=== PATIENT | female | born 1945 | race Caucasian/White ===

== ENCOUNTER 2016-05-02 07:36 | Day surgery (SDC) | payer OTHER, MEDICARE ==
[2016-05-02 08:20] VITALS: BMI 29.6
[2016-05-02] MEDS ORDERED: PROPOFOL 20 ML ONE ×3 (08:36)
[2016-05-02] MEDS ORDERED: LIDOCAINE HCL/PF 1% SDV 5ML VIAL ONE (08:36)
[2016-05-02 09:29] VITALS: TEMP 97.5
[2016-05-02 09:55] VITALS: BP 134/85
[2016-05-02 10:17] VITALS: PULSE 66
--- NOTE | 2016-05-03 13:40 | PATH ---
Surgical Pathology Report Patient Name: SAMEER FRANCIS [facility]. Rec. #: [id number] /Age/Gender: 1945 (Age: 71) / F Account: [id number] Location: U-ENDOSCOPY Taken: 05/02/2016 Received: 05/02/2016 Reported: 05/03/2016 Physicians: Callum Chinchilla M.D. Specimen(s) Received A: BX POLYP PROXIMAL TRANSVERSE COLON B: BX POLYPS SIGMOID Clinical History History of sessile polyp and adenoma Colon polyp, melanosis coli, diverticulosis Final Diagnosis A., PROXIMAL TRANSVERSE, POLYP, BIOPSY: TUBULAR ADENOMA. ADDITIONAL FRAGMENTS OF COLONIC MUCOSA WITH HYPERPLASTIC CHANGE AND MELANOSIS COLI. B. COLON, SIGMOID, POLYPS, BIOPSY: HYPERPLASTIC POLYPS. Electronically Signed Yehuda Barrera M.D. Gross Description A. Received in formalin, labeled "biopsy polyp proximal transverse" are 6 garcia, irregular portions of soft tissue ranging from 0.1-0.5 cm in greatest dimension. The specimens are submitted in toto in one cassette. B. Received in formalin, labeled "biopsy polyp sigmoid" are 3 garcia, irregular portions of soft tissue ranging from 0.1-0.4 cm in greatest dimension. The specimens are submitted in toto in one cassette. 05/02/201605/02/2016
== END 2016-05-02 10:17 | disposition home or self-care (01) ==
LOC: JASU-ENDO 07:36
PROVIDERS: ATTEND Internal Medicine Gastroenterology
PROC: 0DBL8ZX Excision of Transverse Colon, Via Natural or Artificial Opening Endoscopic, Diagnostic (ICD-10-PCS; 2016-05-02)
PROC: 0DBN8ZX Excision of Sigmoid Colon, Via Natural or Artificial Opening Endoscopic, Diagnostic (ICD-10-PCS; principal; 2016-05-02 09:00)
DX: Z86.010 Personal history of colon polyps (principal); D12.5 Benign neoplasm of sigmoid colon; D12.3 Benign neoplasm of transverse colon; K57.30 Diverticulosis of large intestine without perforation or abscess without bleeding; K64.8 Other hemorrhoids
CPT/HCPCS: 88305-TC

== ENCOUNTER 2016-06-13 10:55 | Emergency (ER) | payer OTHER, MEDICARE ==
[2016-06-13 11:08] VITALS: BMI 28.5
--- NOTE | 2016-06-13 12:45 | PDOC ---
History of Present Illness <Tu Almodovar - Last Filed: 06/13/16 14:43> - General History Source: Patient, Old Records Exam Limitations: No Limitations - History of Present Illness Initial Comments: 06/13/16 13:02 The patient is a 71-year-old woman with a significant past medical history of hypertension, transient ischemic attack, SVTs s/p EPS, non-insulin dependent diabetes mellitus, colonoscopic polypectomies, colon adenomas, diverticulosis and seizures with NPH s/p shunt insertion(2004), herniated discs, spinal stenosis, who presents to the emergency department for further evaluation of lower back pain. No fall, trauma and/or strenous activity that might have exacerbated this pain. She states that she has been experiencing intermittent sharp-like bilateral lower back pains since her surgery. However, she states that for the past week, her pains have been more constant than usual. She wanted to take Percocet for pain, as this typically helps alleviated her pains, but were . Her pains are exacerbated with minimal movements and when lying down with a rated 8/10 in severity. Her pain radiates down to her left lateral thigh and stops at the left knee, which is alleviated when ambulating and sitting. No weakness, tingling, numbness sensations to her extremities. Patient spoke to her Neurosurgeon, Dr. Kalyan Perez who advised her to present to the ED. She denies SOB, WARREN, fever, chills, cough, N/V/D, bowel or bladder incontinence/ retention. She denies saddle anesthesia, paresthesias, focal weakness, sensory deficit, gait dysfunction, hematuria or dysuria. Past Surgical History: TAHBSO for fibroids. Hemorrhoidectomy. Breast reduction. Tonsillectomy. Bilateral iridectomies. Nasal basal cell carcinoma excision. Spinal stenosis surgery (July 2014). Social History: Former smoker (Quit 1980). ETOH use. No recreational drug use. Family Past Medical History: Father (Ischemic Heart Disease- at 55). Mother (Alzheimers disease and Cerebrovascular Accident- Alive. Brother ( Malignant tumor of the colon- at age 55) Primary Care Physician: Dr. Lorelei Oropeza [phone]/ [phone] Neurosurgeon: Dr. Kalyan Perez [phone] <Kerry Joseph - Last Filed: 06/13/16 14:48> - General Chief Complaint: Chronic pain Stated Complaint: PAIN/ BACK, LEG Time Seen by Provider: 06/13/16 12:40 Past History - Past Medical History Anemia: No Asthma: No Cancer: Yes (NASAL BASAL CELL CARCINOMA) Cardiac Disorders: Yes (SVT-HAD EPC) CVA: Yes (TIA) COPD: No Diabetes: Yes (NIDDM) GI Disorders: Yes (POLYPS; DIVERTICULOASIS) Disorders: No HTN: Yes Liver Disease: No Seizures: Yes (WITH NPH) Thyroid Disease: No - Surgical History Abdominal Surgery: No Appendectomy: No Cardiac Surgery: No Cholecystectomy: No Lung Surgery: No Neurologic Surgery: Yes (HYDROCEPHALUS,SHUNT INSERTION 2004) - Psycho/Social/Smoking Cessation Hx Suicidal Ideation: No Smoking History: Former smoker Have you smoked in the past 12 months: No If you are a former smoker, when did you quit?: 40YRS AGO Information on smoking cessation initiated: No Hx Alcohol Use: Yes ("SOCIALLY") Drug/Substance Use Hx: No Substance Use Type: None Hx Substance Use Treatment: No <Tu Almodovar - Last Filed: 06/13/16 14:43> <Kerry Joseph - Last Filed: 06/13/16 14:48> - Past Medical History Allergies/Adverse Reactions: Allergies Allergy/AdvReac Type Severity Reaction Status Date / Time No Known Drug Allergies Allergy Verified 06/13/16 11:09 Home Medications: Ambulatory Orders Amlodipine Besylate/Benazepril [Lotrel 5-20 mg Capsule] 1 each PO BID 04/08/14 Lamotrigine 100 mg PO DAILY 04/08/14 Metformin HCl [Glucophage] 1,000 mg PO BID 04/08/14 Metoprolol Succinate [Toprol XL -] 300 mg PO DAILY 04/08/14 Polyethylene Glycol 3350 [Miralax 119 gm Btl -] 17 gm PO DAILY 04/08/14 Aspirin [ASA -] 81 mg PO DAILY #0 04/09/14 Cyanocobalamin [Vitamin B12 -] 1,000 mcg PO DAILY 08/06/14 Hydrochlorothiazide [Hctz -] 25 mg PO DAILY 08/16/14 Oxycodone HCl/Acetaminophen [Percocet 5-325 mg Tablet] 1 - 2 tab PO Q6H PRN #30 tab MDD 8 06/13/16 Review of Systems - Review of Systems Constitutional: No: Chills, Fever : No: Incontinence Musculoskeletal: Yes: Back Pain Neurological: No: Tingling, Weakness <Tu Almodovar - Last Filed: 06/13/16 14:43> *Physical Exam - Vital Signs Last Vital Signs Temp Pulse Resp BP Pulse Ox 97.8 F 59 L 16 141/68 95 06/13/16 11:06 06/13/16 11:06 06/13/16 11:06 06/13/16 11:06 06/13/16 11:06 <Tu Almodovar - Last Filed: 06/13/16 14:43> - Vital Signs Last Vital Signs Temp Pulse Resp BP Pulse Ox 97.8 F 59 L 16 141/68 95 06/13/16 11:06 06/13/16 11:06 06/13/16 11:06 06/13/16 11:06 06/13/16 11:06 - Physical Exam Comments: 06/13/16 13:02 GENERAL: The patient is awake, alert, and fully oriented, in no acute distress. HEAD: Normal with no signs of trauma. EYES: Pupils equal, round and reactive to light, extraocular movements intact, sclera anicteric, conjunctiva clear with no pallor. ENT: Ears normal, nares patent, oropharynx clear without exudates. Moist mucous membranes. NECK: Normal range of motion, supple without lymphadenopathy, JVD, or masses. LUNGS: Breath sounds equal, clear to auscultation bilaterally. No wheeze/ crackles. HEART: Regular rate and rhythm, normal S1 and S2 without murmur or rub. ABDOMEN: Soft/nontender/nondistended. BS wnl. No guarding or rebound. No palpable masses. No hepatosplenomegaly. EXTREMITIES: Normal range of motion, no edema. No clubbing or cyanosis. No cords, erythema, or tenderness. BACK: There is a well healed midline spinal scar. No midline spine tenderness. There is bilateral lumbar parapsinal discomfort to palpation but no noted ecchymosis or swelling. NEUROLOGICAL: Cranial nerves II through XII grossly intact. Normal speech, normal gait. There is 5/5 strength with flexion and extension to the bilateral legs, hips knees toes. Negative straight leg raise, bilaterally. PSYCH: Normal mood, normal affect. SKIN: Warm, Dry, normal turgor, no rashes or lesions noted. <Kerry Joseph - Last Filed: 06/13/16 14:48> ED Treatment Course - RADIOLOGY Radiograph Interpretation: 06/13/16 14:48 EXAM: CT/LUMBAR SPINE CT W/O CONTRAST IMPRESSION: History of L3 fusion low back pain. Evaluate for herniated disc. Evaluate for herniated disc. CT scan of lumbosacral spine noncontrast. Direct axial images were obtained from T11 through the upper sacrum. The study was supplemented with computer generated sagittal and coronal reconstruction images. The meat boner images were reviewed. Findings. Normal alignment of vertebral elements is noted. Normal lumbar lordosis. T11-T12. Loss of disc space height. Anterior, bilateral lateral spondylosis. Facet joint arthropathy with partially calcified ligamentum flavum. T12-L1. Normal disc space height. Mild facet joint arthropathy. No disc herniation seen. L1-L2. Loss of disc space height. Facet joint arthropathy. Anterior, left lateral spondylosis. Right paracentral calcification of the posterior annulus. L2-L3. Loss of disc space height. Moderate degenerative facet joint arthropathy with thickened ligamentum flavum, right ligamentum flavum calcification anterior to the right facet joint. Circumferential disc bulge. Central spinal canal stenosis. Hypertrophic superior articular process of L3 encroaching on the neural foramina. L3-L4. Status post laminectomy. Disc prostheses. Facet joint arthropathy. Interpeduncular screws are noted in L3, L4 vertebral bodies with vertically oriented stabilizing bars. No evidence of neural foramina stenosis. The intraspinal contents cannot be adequately evaluated due to the beam hardening artifacts. L4-L5. Loss of disc space height. Moderate facet joint arthropathy. The intraspinal contents cannot be adequately due to the beam hardening artifacts. Hypertrophic superior articular process of L5 encroaching of the neural foramina, right greater than the left. L5-S1. Loss of disc space height. Degenerative endplate sclerosis. Vacuum phenomena. Moderate degenerative facet joint arthropathy, enlarged facet joints encroaching of the neural foramina. Calcified ligamentum flavum along the anterior surface of the superior articular process of S1 ( right > left). Para discal osteophyte arising from the inferior endplate of L5 encroaching of the left neural foramen. Bilateral neural foramina stenosis. The spinal contents cannot be adequately evaluated due to the beam hardening artifacts. Normal height the vertebral bodies. No evidence of compression deformities, spondylolisthesis. No evidence of lytic or blastic lesions. Symmetrical psoas muscles. No renal stone or hydronephrosis is seen in the visualized kidneys. Large right renal cyst. Distended urinary bladder - Medications Given in the ED: ED Medications Discontinued Medications Generic Name Dose Route Start Last Admin Trade Name Freq PRN Reason Stop Dose Admin Oxycodone/Acetaminophen 1 combo 06/13/16 12:54 06/13/16 12:59 Percocet 5/325 - PO 06/13/16 12:55 1 combo ONCE ONE Administration <Kerry Joseph - Last Filed: 06/13/16 14:48> Medical Decision Making - Medical Decision Making 06/13/16 13:24 A portion of this note was documented by scribe services under my direction. I have reviewed the details of the note, within reason, and agree with the documentation with the following case summary and management plan written by me. 71-year-old female with history of L3 spinal fusion presents with one month of bilateral atraumatic low back pain and now 3 days of sharp radiating left low back/leg pain. Pain radiates laterally and anteriorly to the knee, no associated motor or sensory deficit, no bowel or bladder issues. No trauma. Patient states she was instructed by Dr. Perez's office to come to the ER. Exam as noted, neurologically intact. 71-year-old female with lumbar radiculopathy, question disc versus stenosis. Low suspicion for trauma. No other red flags. Neuro intact. Pain control - took percocet in the past D/W Dr. Perez, recommends CT lumbar spine for further evaluation Dispo accordingly 06/13/16 14:43 Feels better after Percocet, remains neurologically intact. Still some residual discomfort and she tolerated the first dose well, so requests a second dose which was ordered. Ambulating steadily. CT shows both disc and neural foraminal stenosis lesions L2-L3, which is likely the cause of the patient's symptoms. Given neurologically intact and pain controlled, can follow-up with Dr. Perez as outpatient. at bedside, they agree with plan. <Tu Almodovar - Last Filed: 06/13/16 14:43> - Medical Decision Making 06/13/16 13:14 Page sent to Neurosurgeon, Dr. Kalyan Perez. Immediate response. Case was discussed. <JosephKerry - Last Filed: 06/13/16 14:48> *DC/Admit/Observation/Transfer <Tu Almodovar - Last Filed: 06/13/16 14:43> - Attestations Scribe Attestion: 06/13/16 13:03 Documentation prepared by Kerry Joseph, acting as emergency medical technician for Tu Almodovar MD. <OpalKeryr - Last Filed: 06/13/16 14:48> Diagnosis at time of Disposition: Lumbar radiculopathy - Discharge Dispostion Disposition: HOME Condition at time of disposition: Fair - Prescriptions Prescriptions: Oxycodone HCl/Acetaminophen [Percocet 5-325 mg Tablet] 1 - 2 tab PO Q6H PRN #30 tab MDD 8 PRN Reason: Severe Pain - Referrals Referrals: Lorelei Oropeza MD [Primary Care Provider] - Kalyan Perez MD [Staff Physician] - - Patient Instructions Printed Discharge Instructions: DI for Lumbar Radiculopathy Additional Instructions: Activity as tolerated: avoid bedrest and strenuous activity. Stay hydrated. Continue ibuprofen 600 mg every 8 hours (with meals) as needed for moderate pain. Percocet as prescribed as needed for severe pain. Percocet can make you lightheaded, so take proper precautions. Continue your medications as previously prescribed by your physician. You should follow up with Dr. Perez as soon as possible regarding today's emergency department visit. Bring the CT results with you to the visit. Return to the emergency department for any new or concerning symptoms, particularly persistent or intolerable pain, leg numbness or weakness, bowel or bladder issues.
[2016-06-13] MEDS ORDERED: OXYCODONE/APAP 5/325MG COMBO TABLET PO ONE ×2 (12:54→14:43)
[2016-06-13] MEDS ORDERED: OXYCODONE/APAP 5/325MG COMBO TABLET ONE ×2 (12:59→14:45)
[2016-06-13 14:57] VITALS: BP 119/64; PULSE 53; TEMP 98.6
== END 2016-06-13 15:37 | disposition home or self-care (01) ==
LOC: JER 10:55 → JERFT 10:55 → JER 15:37
DX: M54.16 Radiculopathy, lumbar region (principal); I10 Essential (primary) hypertension; Z86.73 Personal history of transient ischemic attack (TIA), and cerebral infarction without residual deficits; I47.1 Supraventricular tachycardia; E11.9 Type 2 diabetes mellitus without complications; Z95.9 Presence of cardiac and vascular implant and graft, unspecified; Z85.828 Personal history of other malignant neoplasm of skin; Z87.891 Personal history of nicotine dependence
CPT/HCPCS: 72131-TC; 99283-25

== ENCOUNTER 2016-07-04 05:07 | Day surgery (SDC) | payer OTHER, MEDICARE ==
[2016-06-28 10:00] VITALS: BMI 27.8
[2016-07-04 08:53] VITALS: TEMP 97.7
[2016-07-04] MEDS ORDERED: MIDAZOLAM HCL 2 MG/2 ML SINGLE DOSE VIAL ONE (09:58)
[2016-07-04] MEDS ORDERED: BUPIVACAINE HCL/PF 0.25% (2.5MG/ML) 10 ML VIAL ONE (10:05)
[2016-07-04] MEDS ORDERED: methylPREDNISolone ACET (DEPO) 80 MG/1 ML VIAL ONE (10:05)
[2016-07-04] MEDS ORDERED: PROPOFOL 20 ML ONE (10:33)
[2016-07-04] MEDS ORDERED: BUPIVACAINE HCL/PF 0.25% (2.5MG/ML) 10 ML VIAL IJ ONE (10:36)
[2016-07-04] MEDS ORDERED: methylPREDNISolone ACET (DEPO) 80 MG/1 ML VIAL IJ ONE (10:36)
[2016-07-04] MEDS ORDERED: LIDOCAINE HCL 1% PRESERVATIVE FREE - 30ML VIAL IJ ONE (10:36)
[2016-07-04 13:34] VITALS: BP 128/70; PULSE 74
--- NOTE | 2016-07-05 15:59 | OP ---
DATE OF OPERATION: 07/04/2016 PREOPERATIVE DIAGNOSES: 1. History of L3-L4 fusion. 2. Left L2-L3 herniated disk with back pain and lumbar radiculopathy. POSTOPERATIVE DIAGNOSES: 1. History of L3-L4 fusion. 2. Left L2-L3 herniated disk with back pain and lumbar radiculopathy. ATTENDING SURGEON: Kaylan Gonzalez MD PROCEDURES: 1. Left L1-L2 epidural steroid injection. 2. Intraoperative fluoroscopy. ANESTHESIA: Local with IV sedation by Dr. Gao. INDICATIONS: The patient is a 71-year-old female with back pain and lumbar radiculopathy. She had developed a new disk herniation at L2-L3. Because of intractable symptoms and failure of conservative therapy, she has consented for a left L1-L2 epidural steroid injection. The location was chosen to minimize scar tissue around the site of the injection. The risks of procedure include, but are not limited to, bleeding, infection, spinal headache, and neurologic injury. The patient understands the indications for the procedure, the procedure in detail, the risks and benefits and alternatives for treatment of her lumbar condition and wishes to proceed. No guarantees were given for a favorable outcome. PROCEDURE IN DETAIL: After the patient was taken to the operating room, she was placed in the prone position with a pillow under her hips. The lumbar area was cleaned with alcohol and painted with Betadine. A skin wheal was raised with 5cc 1% Xylocaine. A 22-gauge spinal needle was inserted under AP and fluoroscopic guidance from the left-sided approach at L1-L2. [id number] technique was utilized, and there was no CSF or blood backflow. Then, 80 mg of Depo-Medrol and 1 mL of 0.25% Marcaine were injected. The needle was withdrawn and a sterile bandage was applied. The patient tolerated the procedure well and was turned back into the supine position. She was moving the bilateral lower extremities well. She did not complain of headache. KALYAN GONZALEZ M.D. [id number] MTDD
== END 2016-07-04 12:30 | disposition home or self-care (01) ==
LOC: JASU-SURG 05:07
PROVIDERS: ATTEND Neurological Surgery
PROC: 3E0S33Z Introduction of Anti-inflammatory into Epidural Space, Percutaneous Approach (ICD-10-PCS; 2016-07-04)
PROC: B01BZZZ Fluoroscopy of Spinal Cord (ICD-10-PCS; 2016-07-04)
PROC: 3E0S3BZ Introduction of Anesthetic Agent into Epidural Space, Percutaneous Approach (ICD-10-PCS; principal; 2016-07-04 10:00)
DX: M51.16 Intervertebral disc disorders with radiculopathy, lumbar region (principal); M54.89 Other dorsalgia; Z98.1 Arthrodesis status
CPT/HCPCS: 76000-TC

== ENCOUNTER 2016-08-29 05:13 | Inpatient (IN) | payer OTHER, MEDICARE ==
[2016-08-28 09:15] VITALS: BMI 28.1
[~2016-08-29 05:13] MED LIST: BACITRACIN 30 GM TUBE TOPICAL OINTMENT TP ONE
[2016-08-29] MEDS ORDERED: BUPIVACAINE HCL/PF 0.5% (5MG/ML) 10 ML VIAL ONE (07:09)
[2016-08-29] MEDS ORDERED: BACITRACIN 30 GM TUBE TOPICAL OINTMENT ONE (07:09)
[2016-08-29] MEDS ORDERED: MIDAZOLAM HCL 2 MG/2 ML SINGLE DOSE VIAL ONE (08:11)
[2016-08-29] MEDS ORDERED: CEFAZOLIN 2 GM in DEXTROSE 5%-WATER - 100 ML IVPB ONE (08:15)
[2016-08-29] MEDS ORDERED: THROMBIN (BOVINE) 5,000 UNIT VIAL TP ONE (08:17)
[2016-08-29] MEDS ORDERED: BACITRACIN 50,000 UNITS VIAL TP ONE (08:17)
[2016-08-29] MEDS ORDERED: PROPOFOL 20 ML ONE ×13 (08:25→10:48)
[2016-08-29] MEDS ORDERED: ROCURONIUM BROMIDE 50 MG/5 ML VIAL ONE (08:25)
[2016-08-29] MEDS ORDERED: ceFAZolin SODIUM 1 GM VIAL IVPB ONE (08:30)
--- NOTE | 2016-08-29 12:58 | OP ---
Operative Note - Note: Operative Date: 08/29/16 Pre-Operative Diagnosis: L2-3 HNP and instability; radiculopathy; prior L3-4 fusion Operation: Redo and expansion of bilateral laminectomies L2, L3, L4; L2-3 discectomy, lysis of adhesion, removal of L3-4 implants, interbody and postero- lateral fusion L2-3; posterolateral fusion L3-4; L2-4 instrumentation; fluoroscopy Findings: dense epidural and paraspinal fibrosis; L2-3 HNP; hypermobility L2-3; sensitive roots bilaterally L2, L3, L4 Implants: Reframed.tv Rosalina 4.5 (6.5 x 45mm screws at L2 and new 60 mm rods B and locking screws); B 11mm interbody fusion Post-Operative Diagnosis: Same as Pre-op Surgeon: Kalyan Perez Hand Twister: Lyndsey Guzman Anesthesiologist/CUSTODIAL MANAGER: Marlene Dumont MD Anesthesia: General Specimens Removed: L2-3 disc; L3-4 metallic implants Estimated Blood Loss (mls): 300
[2016-08-29] MEDS ORDERED: BACITRACIN 30 GM TUBE TOPICAL OINTMENT TP ONE (13:03)
[2016-08-29] MEDS ORDERED: BISACODYL 10 MG SUPP.RECT RC PRN (13:21)
--- NOTE | 2016-08-29 13:37 | PN ---
Progress Note (short form) - Note Progress Note: NEUROSURGERY Pt in PACU AF, VSS; O2 sat 99% PE: Dressing C/D/I Motor at least 4- B LE and US Labs pending LS spine x-rays in AM Family informed of intra-op findings
[2016-08-29] MEDS ORDERED: HYDROmorphone *PCA* 10MG/50ML DISP.SYRIN PCA ONE (13:43)
[2016-08-29] MEDS: HYDROmorphone *PCA* 10MG/50ML DISP.SYRIN PCA SCH (13:50)
[2016-08-29] MEDS ORDERED: DEXAMETHASONE SOD PHOSPHATE 4 MG/1 ML VIAL IVPUSH PRN (14:03)
[2016-08-29] MEDS ORDERED: PROMETHAZINE HCL 25 MG/1 ML VIAL IVPB PRN (14:03)
[2016-08-29 14:07] LABS: MCH 28.9 pg (25.7-33.7); MCHC 33.3 g/dl (32.0-36.0); MEAN CELL VOLUME 86.9 fl (80-96); PLATELET COUNT 147 K/MM3 (134-434); RDW 14.9 % (11.6-15.6); WHITE BLOOD COUNT 6.3 K/mm3 (4.0-10.0)
[2016-08-29 14:40] LABS: CALCIUM 8.9 mg/dL (8.5-10.1); COCKROFT - GAULT 107.627; CREATININE 0.6 mg/dL (0.55-1.02)
[2016-08-29] MEDS: D5-1/2NS+20 MEQ KCL - 1,000 ML IV SCH (15:30)
[2016-08-29] MEDS: DOCUSATE SODIUM 100 MG CAPSULE (FP) PO SCH ×2 (17:04→21:40)
[2016-08-29] MEDS: diazePAM 5 MG TABLET PO SCH ×2 (17:04→21:40)
[2016-08-29] MEDS: CEFAZOLIN (PRE-DOCKED) 50 ML IVPB SCH (18:05)
[2016-08-29] MEDS: metFORMIN HCL 500 MG TABLET (FP) PO SCH (18:05)
[2016-08-29] MEDS: amLODIPine BESYLATE 5 MG TABLET (FP) PO SCH (21:40)
[2016-08-29] MEDS: LISINOPRIL 20 MG TABLET (FP) PO SCH (21:40)
[2016-08-30] MEDS ORDERED: HYDROmorphone *PCA* 10MG/50ML DISP.SYRIN PCA ONE ×2 (00:05→11:00)
[2016-08-30] MEDS: HYDROmorphone *PCA* 10MG/50ML DISP.SYRIN PCA SCH ×2 (00:30→15:37)
[2016-08-30] MEDS: CEFAZOLIN (PRE-DOCKED) 50 ML IVPB SCH ×2 (01:41→11:17)
[2016-08-30] MEDS: metFORMIN HCL 500 MG TABLET (FP) PO SCH ×2 (06:22→17:35)
[2016-08-30] MEDS: DOCUSATE SODIUM 100 MG CAPSULE (FP) PO SCH ×3 (06:22→21:19)
[2016-08-30] MEDS: diazePAM 5 MG TABLET PO SCH ×3 (06:22→21:20)
--- NOTE | 2016-08-30 08:58 | PN ---
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
--- NOTE | 2016-08-30 09:01 | OP ---
DATE OF OPERATION: 08/29/2016 PREOPERATIVE DIAGNOSES: 1. 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 2. History of L3-4 fusion. 3. Spinal stenosis. 4. Hypertension. 5. Diabetes. POSTOPERATIVE DIAGNOSES: 1. 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 2. History of L3-4 fusion. 3. Spinal stenosis. 4. Hypertension. 5. Diabetes. ATTENDING SURGEON: Kalyan Perez MD DIRECTOR MUSIC: NICO Sofia ANESTHESIA: General endotracheal. ANESTHESIOLOGIST: Marlene Dumont MD ESTIMATED BLOOD LOSS: 300 mL PROCEDURE: 1. Redo and expansion of prior laminectomies at L3 and L4 and new bilateral laminectomy at L2, including medial facetectomy and foraminotomy to decompress the thecal sac as well as bilateral L4, L3, and L2 nerve roots (81029-68-09, 69348- 50, and 05637-88). 2. Lacona of autologous spinous process, laminar, and facet bone for interbody and posterolateral fusion (47274). 3. Bilateral L2-3 diskectomy. 4. L2-3 interbody and posterolateral fusion (35771). 5. Placement of bilateral interbody implants at L2-3 (58091). 6. Removal of prior posterior lumbar fixation system at L3-4 to facilitate new implant placement (41807). 7. Posterior lumbar pedicle screw fixation system placement with new pedicle screws at L2 bilaterally and new rods and locking screw systems from L2 to L4 (90147-25 ). 8. Bilateral L3-4 posterolateral fusion with autologous morcellized bone graft and bone dust (21315-96). 9. Intraoperative fluoroscopy for localization and pedicle screw placement (20830-35). FINDINGS: 1. Extremely bilateral sensitive nerve roots. 2. Slightly delayed SSEP signal latency at baseline. 3. Disk herniation at L2-3 with associated hypermobility. 4. Dense epidural and paraspinal fibrosis. INDICATIONS: The patient is a 71-year-old female who has previously undergone lumbar decompression and fusion with instrumentation about a year earlier. She did well after surgery, however, started experiencing recurrence of radicular pain down the left lower extremity several weeks ago. She has also recently developed right- sided radiculopathy. Because of intractable symptoms and failure of conservative treatment, she was consented for lumbar decompression and extension of the fusion up to the L2 level from L3-4. Decompression will also be performed from L2 to L4 with interbody fusion and posterolateral fusion at L2-3. Implant system will need to be changed and added on. The risks of the procedure include, but are not limited to, bleeding, infection, dural tear with CSF leak, neurological injury, increased thromboembolic risks, nonunion of fusion, and other risks of general anesthesia. The patient understands the indication for the procedure, procedure in detail, risks and benefits, and alternative for treatment of her lumbar condition, including decompression alone, and wishes to proceed with the fusion procedure at this time. No guarantees given for a favorable outcome. The patient understands that her risks are higher than usual because of the redo nature of her surgery, as well as her medical condition including diabetes. Intraoperative SSEP and EMG signals were monitored. PROCEDURE IN DETAIL: The patient was taken to the operating room. She was placed in the supine position. After general anesthesia was induced and appropriate monitors were placed, a Del Toro catheter was inserted. The patient was then turned into the prone position on a Lawrence frame. All pressure points were checked and padded. Baseline SSEP signals were obtained. O2 saturations on bilateral extremities were found to be 100%. At this point, the localizing x-ray was obtained with spinal needle in place. The patient was sterilely prepped and draped. The prior incision was used with approximately 1 inch cephalad extension to access the L2-3 level adequately. Subperiosteal dissection was carried out with periosteal elevator and monopolar electrocautery. Dense paraspinal and epidural fibrosis was noted. At this point, the prior instrumentation system at L3-4 was skeletonized. Two self-retaining retractors were inserted. The spinous process at L2 was resected with a Leksell rongeur and complete laminectomy was carried out with a combination of high-speed pneumatic drill, angled curet, and Kerrison rongeur. Meticulous dissection was needed because of the dense epidural and paraspinal fibrosis. Medial facetectomy was carried out at the L2-3 level in order to gain access to the lateral recess. There was significant compression of the spinal canal on the right side because of the bone facet overgrowth as well as the paraspinal fibrosis. The epidural hemostasis was obtained with bipolar electrocautery and thrombin-soaked powdered Gelfoam. The underlying ligamentum flavum was dissected free and resected with Kerrison rongeur. This segment was hypermobile even before the laminectomy was carried out. At this point, under gentle left L3 nerve root retraction, disk annulus was incised with a No. 15 blade. Some disk fragment and additional disk material were removed from the epidural space as well as from the disk space. The serially larger disk space scraper was used at L2-3 on the left up to 9 mm. The attention then turned to the right-sided disk space, where under gentle right L3 nerve root retraction the disk annulus was incised with a No. 15 blade and disk space was cleaned with serially larger disk space scraper up to 11 mm. A 12-mm distractor was used on the right side and attention turned to the left-sided interspace, where the central portion of disk material was removed with downgoing curet and upgoing pituitary rongeur. Some side-angling curet was also used after disk space scraper up to 11 mm was used to further prepare the disk space and to decompress the spinal canal. An 11-mm corticocancellous interbody implant was placed and countersunk by about 5 mm. Attention turned to the right-sided disk space, where the distractor was removed, and the disk space was similarly prepared. The central portion of the disk space was packed with autologous morcellized bone graft and bone dust which was harvested earlier during the exposure. Another 11-mm interbody implant was inserted and countersunk by 4 to 5 mm as well. At this point, the fluoroscope was brought in the lateral AP position to ascertain AP position of the patient's lumbar spine. It was then turned to the lateral position and sterilely draped also. The entry point of the pedicle screw at L2 was marked with a high-speed pneumatic drill and screw holes were made with a hand-held awl with approximately 6 to 8 degrees medial angle. The screw holes were then tapped, then 6.5 x 45-mm screws were used at L2 bilaterally. This was done with realtime EMG monitoring. After the facetectomy was carried out at L2-3, the L3 screws were moved anteriorly to facilitate the lordosis of the iraida. This was done bilaterally at L3. The EMG threshold of bilateral L2 and L3 pedicle screws was greater than 20 mA. A 60-mm prebent iraida was loaded on top of the screw heads and locked down with locking screws. The screws were compressed prior to final tightening. The torque wrench and counter-torque wrench were used for final tightening. The entire constructs on the right side and left side were stimulated once again, and there were no aberrant EMG activities. The wound was then irrigated with a copious amount of antibiotic irrigation at this time. A Valsalva maneuver was performed and there was no CSF leak at any point. In all, bilateral L2, L3, and L5 nerve roots were decompressed as well as the thecal sac centrally. The posterolateral bone graft was significantly removed during the removal of the prior implant at L3 and L4, including locking screws and rods. Therefore, additional bone graft was needed to be placed at L3-4 level in addition to the L2-3 level to fortify the prior fusion at L3-4. After hemostasis was obtained with bipolar electrocautery, a layer of Surgicel was layered in the epidural space. Dorsal lumbar musculature was approximated with 0 Vicryl suture and the dorsal lumbar fascia was closed with 0 Vicryl interrupted sutures. Subcutaneous fascia was closed with 3-0 Vicryl sutures and skin was closed with 4-0 Vicryl running subcuticular suture. Steri-Strips and a sterile occlusive dressing were applied. The patient tolerated the procedure well and was turned back to the supine position and extubated. She was moving bilateral upper and lower extremities as she did preoperatively. A small skin abrasion was noted in the right groin area. Bacitracin ointment was applied. The patient received 1 dose of 1 g of Ancef prior to the incision. All needle and lap counts were correct. The OR timeout procedure was followed. Lisbet [id number] MTDD
[2016-08-30] MEDS: METOPROLOL SUCCINATE 100 MG TAB.SR.24H (FP) PO SCH (11:16)
[2016-08-30] MEDS: HYDROCHLOROTHIAZIDE 25 MG TABLET (FP) PO SCH (11:16)
[2016-08-30] MEDS: LISINOPRIL 20 MG TABLET (FP) PO SCH ×2 (11:16→21:19)
[2016-08-30] MEDS: amLODIPine BESYLATE 5 MG TABLET (FP) PO SCH ×2 (11:16→21:19)
[2016-08-30] MEDS: POLYETHYLENE GLYCOL 3350 119 GM BTL PO SCH (11:17)
[2016-08-30] MEDS: lamoTRIgine 100 MG TABLET (FP) PO SCH (11:17)
--- NOTE | 2016-08-30 11:42 | PN ---
Progress Note (short form) - Note Progress Note: Anesthesia post op note. S/P L2-4 Laminectomy, with fusion, in GETA and PAYROLL ANALYST post op. Pat seen and examined. No apparent post anesthesia complications. C/O pain 11/08. Noticed PAYROLL ANALYST pump have been empty. PAYROLL ANALYST pump replaced. A bolus of 0.4 mg given by me. Pump restarted. 0.2 mg hydromorphone, Q 8 min. 0.3 mg prn x3 doses for breakthrough pain. Educated the patient about using the PAYROLL ANALYST. Pat satisfied. VSS. Will follow up .
[2016-08-30] MEDS: D5-1/2NS+20 MEQ KCL - 1,000 ML IV SCH ×2 (15:37→21:19)
--- NOTE | 2016-08-30 15:50 | SURG ---
Surgery Software Applications Architect Note Software Applications Architect: Lyndsey Guzman PA-C Date of Service: 08/30/16 Diagnosis: L2-3 HNP and instability; radiculopathy; prior L3-4 fusion Procedure: Redo and expansion of bilateral laminectomies L2, L3, L4; L2-3 discectomy, lysis of adhesion, removal of L3-4 implants, interbody and postero-lateral fusion L2-3; posterolateral fusion L3-4; L2-4 instrumentation; fluoroscopy I was present for the entirety of the operative procedure. For further detail, please refer to operative report. Visit type - Case Type Case Type: Scheduled Admission - Emergency Emergency Visit: No - New patient This patient is new to me today: Yes Date on this admission: 08/30/16 - Critical Care Critical Care patient: No
[2016-08-30] MEDS: ACETAMINOPHEN 325 MG TABLET (FP) PO PRN (17:34)
[2016-08-30] MEDS: INSULIN SLIDING SCALE (NOVOLOG) 1 VIAL SQ SCH (17:36)
[2016-08-31] MEDS ORDERED: HYDROmorphone *PCA* 10MG/50ML DISP.SYRIN PCA ONE (00:41)
[2016-08-31] MEDS: HYDROmorphone *PCA* 10MG/50ML DISP.SYRIN PCA SCH (00:44)
[2016-08-31] MEDS: metFORMIN HCL 500 MG TABLET (FP) PO SCH ×2 (06:01→16:38)
[2016-08-31] MEDS: DOCUSATE SODIUM 100 MG CAPSULE (FP) PO SCH ×3 (06:01→21:07)
[2016-08-31] MEDS: diazePAM 5 MG TABLET PO SCH ×3 (06:02→21:48)
[2016-08-31] MEDS: INSULIN SLIDING SCALE (NOVOLOG) 1 VIAL SQ SCH ×2 (06:02→16:09)
[2016-08-31] MEDS: ONDANSETRON 4 MG/2 ML VIAL IVPB PRN (06:06)
--- NOTE | 2016-08-31 07:33 | PN ---
Progress Note (short form) - Note Progress Note: NEUROSURGERY POD #2 Incisional pain MECHANICAL SYSTEMS DESIGN ENGINEER not helping much Seen walking with PT yesterday Tmax 100, VSS PE: A/A/Ox3 CV- RR; Lungs-CTA B; Abd- benign, + BS; Ext- no sign of DVT Dressing C/D/I Motor at least 4+ B LE and UE LS spine x-rays- good position of L2-4 implants and alignment D/C MECHANICAL SYSTEMS DESIGN ENGINEER Nucynta and iv dilaudid PRN OOB with LSO brace Incentive spirometry Observe temp Check CBC
[2016-08-31 08:19] LABS: BASOPHIL 0.4 % (0-2.0); EOSINOPHIL 1.1 % (0-4.5); MCH 29.1 pg (25.7-33.7); MCHC 32.9 g/dl (32.0-36.0); MEAN CELL VOLUME 88.2 fl (80-96); MEAN PLT VOLUME 9.6 fl (7.5-11.1); NEUTROPHILS 78.5 % (42.8-82.8); PLATELET COUNT 139 K/MM3 (134-434); RDW 14.9 % (11.6-15.6); WHITE BLOOD COUNT 13.6 K/mm3 (4.0-10.0)
--- NOTE | 2016-08-31 08:28 | PN ---
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 Perez. Dept of anesthesiology will sign off care at this time
[2016-08-31 08:46] LABS: ANION GAP 9 (8-16); CALCIUM 9.2 mg/dL (8.5-10.1); CO2 30 mmol/L (21-32); CREATININE 0.6 mg/dL (0.55-1.02); GLUCOSE,RANDOM 179 mg/dL (74-106)
[2016-08-31 09:17] LABS: TROPONIN I < 0.02 ng/ml (0.00-0.05)
--- NOTE | 2016-08-31 09:39 | EKG ---
Test Reason : Blood Pressure : / mmHG Vent. Rate : 154 BPM Atrial Rate : 271 BPM P-R Int : 000 ms QRS Dur : 086 ms QT Int : 294 ms P-R-T Axes : 000 020 211 degrees QTc Int : 470 ms ATRIAL FIBRILLATION WITH RAPID VENTRICULAR RESPONSE NONSPECIFIC ST AND T WAVE ABNORMALITY ABNORMAL ECG Confirmed by LIZETTE TURCIOS MD ([id number]) on 08/31/2016 9:39:06 AM Referred By: CHEN GONZALEZ Confirmed By:LIZETTE TURCIOS MD
[2016-08-31] MEDS: TAPENTADOL HYDROCHLORIDE 50 MG TABLET PO SCH ×4 (09:57→17:11)
[2016-08-31] MEDS: LISINOPRIL 20 MG TABLET (FP) PO SCH ×2 (10:06→21:07)
[2016-08-31] MEDS: METOPROLOL SUCCINATE 100 MG TAB.SR.24H (FP) PO SCH (10:06)
[2016-08-31] MEDS: HYDROCHLOROTHIAZIDE 25 MG TABLET (FP) PO SCH (10:06)
[2016-08-31] MEDS: amLODIPine BESYLATE 5 MG TABLET (FP) PO SCH ×3 (10:06→21:05)
[2016-08-31] MEDS: POLYETHYLENE GLYCOL 3350 119 GM BTL PO SCH (10:06)
[2016-08-31] MEDS: lamoTRIgine 100 MG TABLET (FP) PO SCH (10:06)
--- NOTE | 2016-08-31 10:26 | PN ---
Progress Note (short form) - Note Progress Note: SUBJECTIVE: Patient seen and examined. Chart reviewed. Patient well known to us from office. Status post bilateral laminectomy, lysis of adhesion on 08/29. Patient was transferred to Telemetry this morning due to post operative atrial fibrillation- converted back to sinus. Patient awake and comfortable. Reports pain under control now. Family at bedside. OBJECTIVE: Vital Signs 08/31/16 06:00 Temperature 97.7 F Pulse Rate 131 H Respiratory 20 Rate Blood Pressure 123/83 Intake & Output 08/30/16 08/31/16 08/31/16 23:59 07:59 15:59 Intake Total 870 Output Total 1500 800 Balance -630 -800 Intake: IV 770 D5-1/2Ns+20 Meq KCl - 1, 770 000 ml @ 42 mls/hr IV ASDIR [facility] Rx#:[id number] IVPB 100 Output: Urine 1500 800 Del Toro 1500 800 Other: Voiding Method Indwelling Catheter Bowel Movement No # Bowel Movements 0 Active Medications Acetaminophen (Tylenol -) 650 mg PO Q6H PRN PRN Reason: FEVER Last Admin: 08/30/16 17:34 Dose: 650 mg Amlodipine Besylate (Norvasc -) 5 mg PO BID [facility] Last Admin: 08/31/16 10:06 Dose: 5 mg Bisacodyl (Dulcolax Suppository -) 10 mg RC DAILY PRN PRN Reason: CONSTIPATION Dexamethasone Sodium Phosphate (Decadron Injection -) 4 mg IVPUSH ONCE PRN PRN Reason: NAUSEA AND/OR VOMITING Diazepam (Valium -) 10 mg PO TID [facility] Last Admin: 08/31/16 06:02 Dose: Not Given Diphenhydramine HCl (Benadryl Injection -) 12.5 mg IVPUSH ONCE PRN PRN Reason: FOR ITCHING Docusate Sodium (Colace -) 100 mg PO TID [facility] Last Admin: 08/31/16 06:01 Dose: 100 mg Fentanyl (Sublimaze Injection -) 50 mcg IVPUSH [id number] PRN PRN Reason: PAIN Stop: 09/01/16 14:04 Hydrochlorothiazide (Hctz -) 25 mg PO DAILY [facility] Last Admin: 08/31/16 10:06 Dose: 25 mg Hydromorphone HCl (Dilaudid Injection -) 1 mg IVPB Q4H PRN PRN Reason: PAIN Potassium Chloride/Dextrose/Sod Cl (D5-1/2ns+20 Meq Kcl -) 1,000 mls @ 42 mls/ hr IV ASDIR [facility] Last Admin: 08/30/16 21:19 Dose: 42 mls/hr Insulin Aspart (Novolog Vial Sliding Scale -) 1 vial SQ BIDAC [facility] PRN Reason: Protocol Last Admin: 08/31/16 06:02 Dose: 2 units Lamotrigine (Lamictal -) 100 mg PO DAILY [facility] Last Admin: 08/31/16 10:06 Dose: Not Given Lisinopril (Prinivil) 20 mg PO BID [facility] Last Admin: 08/31/16 10:06 Dose: 20 mg Metformin HCl (Glucophage -) 1,000 mg PO BIDAC [facility] Last Admin: 08/31/16 06:01 Dose: 1,000 mg Metoprolol Succinate (Toprol Xl -) 300 mg PO DAILY [facility] Last Admin: 08/31/16 10:06 Dose: 300 mg Ondansetron HCl (Zofran Injection) 4 mg IVPB Q6H PRN PRN Reason: NAUSEA AND/OR VOMITING Last Admin: 08/31/16 06:06 Dose: 4 mg Polyethylene Glycol (Miralax (For Daily Use) -) 17 gm PO DAILY [facility] Last Admin: 08/31/16 10:06 Dose: Not Given Promethazine HCl (Phenergan Injection -) 12.5 mg IVPB Q6H PRN PRN Reason: NAUSEA AND/OR VOMITING Tapentadol (Nucynta -) 50 mg PO Q6HPO [facility] Last Admin: 08/31/16 09:57 Dose: Not Given CBC, BMP 08/31/16 08:10 08/31/16 08:10 Laboratory Results - last 24 hr 08/30/16 08/31/16 08/31/16 17:32 05:48 08:10 WBC 13.6 H D RBC 4.43 Hgb 12.9 Hct 39.1 MCV 88.2 MCHC 32.9 RDW 14.9 Plt Count 139 MPV 9.6 Neutrophils % 78.5 D Lymphocytes % 9.3 D Monocytes % 10.7 H Eosinophils % 1.1 Basophils % 0.4 Sodium Potassium Chloride Carbon Dioxide Anion Gap BUN Creatinine POC Glucometer 168 184 Random Glucose Calcium Creatine Kinase Troponin I 08/31/16 08/31/16 08/31/16 08:10 08:29 08:40 WBC RBC Hgb Hct MCV MCHC RDW Plt Count MPV Neutrophils % Lymphocytes % Monocytes % Eosinophils % Basophils % Sodium 136 Potassium 4.4 Chloride 97 L Carbon Dioxide 30 Anion Gap 9 BUN 7 D Creatinine 0.6 POC Glucometer 183 Random Glucose 179 H Calcium 9.2 Creatine Kinase 109 Cancelled Troponin I < 0.02 Cancelled Microbiology 08/29/16 06:42 Urine Culture - Final Urine - Urine Clean Catch PHYSICAL EXAMINATION: Constitutional: No distress. Cardiovascular: S1 S2 regular Respiratory: Clear to auscultation Gastrointestinal: Soft. Nontender Extremities: No edema Neurological: Awake and Alert. ASSESSMENT & PLAN: - Monitor on Telemetry - Pain control. - Cardiology to follow- I discussed with Dr. Villatoro also today. - Follow up electrolytes. - Monitor blood pressure and blood sugar. - Will follow. Documentations prepared by Kerry Joseph, acting as a medical insurance clerk for Jimmy Arnett MD. Problem List - Problems (1) Diabetes Code(s): E11.9 - TYPE 2 DIABETES MELLITUS WITHOUT COMPLICATIONS (2) HTN (hypertension) Code(s): I10 - ESSENTIAL (PRIMARY) HYPERTENSION (3) Post laminectomy syndrome Code(s): M96.1 - POSTLAMINECTOMY SYNDROME, NOT ELSEWHERE CLASSIFIED (4) Arrhythmia Code(s): I49.9 - CARDIAC ARRHYTHMIA, UNSPECIFIED
--- NOTE | 2016-08-31 11:16 | CON.CARD ---
Cardiology Consult (text) - Consultation Consultation Note: cc: here for elective back surgery hpi: 71 f hx htn, hld, dm, NPH s/p shunt, LBP, pafib here for elective back surgery. Had surgery earlier this week and has been feeling well except for pain in back. This AM she was found to be in afib with rvr so transferred to tele. Converted back to sr on her own. Has left breast/chest pain, worse with movement of left arm and tender to touch, she thinks she pulled muscle when pulling herself up with bed rail. No sob, palps, dizzy, loc, pnd, orthopnea, le edema. pmh: per hpi psh: back surgery social: ex tob fam: dad mi age 54, brother mi 50s ros: per hpi; no nvd, rash, craig, vision changes, nasal congestion, cough, gib, hematuria meds: Home Medications Medication Instructions Recorded Amlodipine Besylate/Benazepril 1 each PO BID 04/08/14 [Lotrel 5-20 mg Capsule] Lamotrigine 100 mg PO DAILY 04/08/14 Metformin HCl [Glucophage] 1,000 mg PO BID 04/08/14 Metoprolol Succinate [Toprol XL -] 300 mg PO DAILY 04/08/14 Polyethylene Glycol 3350 [Miralax 17 gm PO DAILY 04/08/14 119 gm Btl -] Aspirin [ASA -] 81 mg PO DAILY #0 04/09/14 Cyanocobalamin [Vitamin B12 -] 1,000 mcg PO DAILY 08/06/14 Hydrochlorothiazide [Hctz -] 25 mg PO DAILY 08/16/14 pe: Vital Signs Period Temp Pulse Resp BP Sys/Conway Pulse Ox Last 24 Hr 97.7 F-100.2 F 80-131 18-20 112-144/65-83 93 nad no jvd rrr s1s2 no mrg cta bl nl eff aaox3 no le e/c/c abd nt nt pos bs no carotid bruits, +dp pt no jaundice diaphoresis left breast/chest tenderness Laboratory Last Values WBC 13.6 K/mm3 (4.0-10.0) H D 08/31/16 08:10 RBC 4.43 M/mm3 (3.60-5.2) 08/31/16 08:10 Hgb 12.9 GM/dL (10.7-15.3) 08/31/16 08:10 Hct 39.1 % (32.4-45.2) 08/31/16 08:10 MCV 88.2 fl (80-96) 08/31/16 08:10 MCHC 32.9 g/dl (32.0-36.0) 08/31/16 08:10 RDW 14.9 % (11.6-15.6) 08/31/16 08:10 Plt Count 139 K/MM3 (134-434) 08/31/16 08:10 MPV 9.6 fl (7.5-11.1) 08/31/16 08:10 Neutrophils % 78.5 % (42.8-82.8) D 08/31/16 08:10 Lymphocytes % 9.3 % (8-40) D 08/31/16 08:10 Monocytes % 10.7 % (3.8-10.2) H 08/31/16 08:10 Eosinophils % 1.1 % (0-4.5) 08/31/16 08:10 Basophils % 0.4 % (0-2.0) 08/31/16 08:10 Sodium 136 mmol/L (136-145) 08/31/16 08:10 Potassium 4.4 mmol/L (3.5-5.1) 08/31/16 08:10 Chloride 97 mmol/L (98-107) L 08/31/16 08:10 Carbon Dioxide 30 mmol/L (21-32) 08/31/16 08:10 Anion Gap 9 (8-16) 08/31/16 08:10 BUN 7 mg/dL (7-18) D 08/31/16 08:10 Creatinine 0.6 mg/dL (0.55-1.02) 08/31/16 08:10 POC Glucometer 183 UNITS (()) 08/31/16 08:29 Random Glucose 179 mg/dL (74-106) H 08/31/16 08:10 Calcium 9.2 mg/dL (8.5-10.1) 08/31/16 08:10 Creatine Kinase Cancelled 08/31/16 08:40 Troponin I Cancelled 08/31/16 08:40 Blood Type O POSITIVE 08/29/16 06:40 Antibody Screen Negative 08/29/16 06:40 mibi 05/2013: no ischemia, nl lvef echo 01/2016: nl lv/rv, no sig valve path ecg 08/31/16: afib, vr 154, nl qtc, nonspecific tw changes tele: sr a/p: 71 f hx htn, hld, dm, NPH s/p shunt, LBP, pafib here for elective back surgery. pafib: -pt reports having a hx of afib for many years with last episode over a year ago. She reports that in past she was told she did not need AC due to brief/ rare episodes. -here in post op setting had episode of afib with rvr, now back in sr -cont tele, cont home bb -pt has indication for AC and discussed risks/benefits with her today but she is reluctant to start AC and said she would like to think about it first. Continue home asa 81 when ok post op. htn: -cont home meds chest pain: -atypical, MSK in nature, monitor for now
--- NOTE | 2016-08-31 12:07 | PATH ---
Surgical Pathology Report Patient Name: SAMEER FRANCIS Med. Rec. #: [id number] /Age/Gender: 1945 (Age: 71) / F Account: [id number] Location: 4 W TELEMETRY U Taken: 08/29/2016 Received: 08/30/2016 Reported: 08/31/2016 Physicians: Kalyan Perez M.D. Specimen(s) Received A: DISC L2-3 B: HARDWARE L3-4 Clinical History L2-3 herniated disc, lumbar stenosis Final Diagnosis A. INTERVERTEBRAL DISC, L2-3, POSTERIOR LUMBAR INTERBODY FUSION: FRAGMENTS OF CARTILAGE AND BONE WITH DEGENERATIVE CHANGES. B. HARDWARE, L3-4, REMOVAL: ORTHOPEDIC HARDWARE (GROSS EXAM). Electronically Signed Yehuda Barrera M.D. Gross Description A. Received in formalin labeled "disc L2-3" is a 5.5 x 4.4 x 0.8 cm aggregate of garcia fragments of fibrocartilaginous tissue and possible bone. A civil rights representative portion is submitted in one cassette, following decalcification. B. Received fresh labeled "hardware instrumentation L3-4" are 2 mcmillan metallic, curved rods measuring 3.0 and 3.7 cm in length and averaging 0.4 cm in diameter. Also received within the same container are 4 mcmillan metallic washers averaging 0.8 cm in diameter and 0.4 cm in length. No soft tissue is present. No sections are submitted, gross only. /08/30/2016 saudi08/30/2016
[2016-08-31] MEDS: ACETAMINOPHEN 325 MG TABLET (FP) PO PRN (15:37)
[2016-08-31] MEDS: HYDROmorphone HCL CARPU-JECT 1 MG/1 ML DISP.SYRIN IVPB PRN (21:02)
[2016-09-01] MEDS: HYDROmorphone HCL CARPU-JECT 1 MG/1 ML DISP.SYRIN IVPB PRN ×2 (01:04→05:20)
[2016-09-01] MEDS: TAPENTADOL HYDROCHLORIDE 50 MG TABLET PO SCH ×4 (01:06→17:32)
[2016-09-01] MEDS: ONDANSETRON 4 MG/2 ML VIAL IVPB PRN ×2 (03:48→13:28)
[2016-09-01] MEDS: diazePAM 5 MG TABLET PO SCH ×3 (05:18→21:27)
[2016-09-01] MEDS: DOCUSATE SODIUM 100 MG CAPSULE (FP) PO SCH ×3 (05:19→21:26)
[2016-09-01] MEDS: D5-1/2NS+20 MEQ KCL - 1,000 ML IV SCH (06:23)
[2016-09-01 07:12] LABS: BASOPHIL 0.3 % (0-2.0); MCH 29.8 pg (25.7-33.7); MCHC 34.4 g/dl (32.0-36.0); MEAN CELL VOLUME 86.6 fl (80-96); MEAN PLT VOLUME 9.6 fl (7.5-11.1); NEUTROPHILS 77.5 % (42.8-82.8); PLATELET COUNT 146 K/MM3 (134-434); RDW 14.2 % (11.6-15.6); WHITE BLOOD COUNT 9.9 K/mm3 (4.0-10.0)
[2016-09-01 07:39] LABS: ALBUMIN 2.9 g/dl (3.4-5.0); ANION GAP 10 (8-16); CALCIUM 9.1 mg/dL (8.5-10.1); CO2 30 mmol/L (21-32); COCKROFT - GAULT 129.1575; CREATININE 0.5 mg/dL (0.55-1.02); GLUCOSE,RANDOM 140 mg/dL (74-106); SGOT/AST 10 U/L (15-37); SGPT/ALT 15 U/L (12-78)
[2016-09-01 07:42] LABS: ALK PHOS 38 U/L (45-117); BILIRUBIN,TOTAL 0.6 mg/dL (0.2-1.0)
[2016-09-01] MEDS: metFORMIN HCL 500 MG TABLET (FP) PO SCH ×2 (08:05→17:32)
[2016-09-01] MEDS: INSULIN SLIDING SCALE (NOVOLOG) 1 VIAL SQ SCH ×2 (08:08→17:33)
--- NOTE | 2016-09-01 08:43 | PN ---
Progress Note (short form) - Note Progress Note: NEUROSURGERY POD #3 Incisional pain Walking to bathroom NO voidign issue No C/P or dyspnea AF, VSS PE: A/A/Ox3 CV- RR; Lungs-CTA B; Abd- benign, + BS; Ext- no sign of DVT Dressing with mild serosangrenous discharge-chaged Motor at least 4+ B LE and UE WBC 9.9, tending down LS spine x-rays- good position of L2-4 implants and alignment Nucynta and iv dilaudid PRN OOB with LSO brace Incentive spirometry Observe temp Rehab discussed though pt states she is walking well Tx to 8W
[2016-09-01] MEDS: lamoTRIgine 100 MG TABLET (FP) PO SCH (10:18)
[2016-09-01] MEDS: POLYETHYLENE GLYCOL 3350 119 GM BTL PO SCH (10:18)
[2016-09-01] MEDS: METOPROLOL SUCCINATE 100 MG TAB.SR.24H (FP) PO SCH (10:18)
[2016-09-01] MEDS: amLODIPine BESYLATE 5 MG TABLET (FP) PO SCH ×2 (10:18→21:27)
[2016-09-01] MEDS: LISINOPRIL 20 MG TABLET (FP) PO SCH ×2 (10:18→21:30)
[2016-09-01] MEDS: HYDROCHLOROTHIAZIDE 25 MG TABLET (FP) PO SCH (10:19)
--- NOTE | 2016-09-01 10:50 | PN ---
Progress Note, Physician Chief Complaint: Has back pain post op No tingling or sensory loss of extremities - Current Medication List Current Medications: Active Medications Acetaminophen (Tylenol -) 650 mg PO Q6H PRN PRN Reason: FEVER Last Admin: 08/31/16 15:37 Dose: 650 mg Amlodipine Besylate (Norvasc -) 5 mg PO BID [facility] Last Admin: 09/01/16 10:18 Dose: 5 mg Bisacodyl (Dulcolax Suppository -) 10 mg RC DAILY PRN PRN Reason: CONSTIPATION Dexamethasone Sodium Phosphate (Decadron Injection -) 4 mg IVPUSH ONCE PRN PRN Reason: NAUSEA AND/OR VOMITING Diazepam (Valium -) 10 mg PO TID [facility] Last Admin: 09/01/16 05:18 Dose: 10 mg Diphenhydramine HCl (Benadryl Injection -) 12.5 mg IVPUSH ONCE PRN PRN Reason: FOR ITCHING Docusate Sodium (Colace -) 100 mg PO TID [facility] Last Admin: 09/01/16 05:19 Dose: 100 mg Fentanyl (Sublimaze Injection -) 50 mcg IVPUSH [id number] PRN PRN Reason: PAIN Stop: 09/01/16 14:04 Hydrochlorothiazide (Hctz -) 25 mg PO DAILY [facility] Last Admin: 09/01/16 10:19 Dose: 25 mg Hydromorphone HCl (Dilaudid Injection -) 1 mg IVPB Q4H PRN PRN Reason: PAIN Last Admin: 09/01/16 05:20 Dose: 1 mg Potassium Chloride/Dextrose/Sod Cl (D5-1/2ns+20 Meq Kcl -) 1,000 mls @ 42 mls/ hr IV ASDIR [facility] Last Admin: 09/01/16 06:23 Dose: Not Given Insulin Aspart (Novolog Vial Sliding Scale -) 1 vial SQ BIDAC [facility] PRN Reason: Protocol Last Admin: 09/01/16 08:08 Dose: Not Given Lamotrigine (Lamictal -) 100 mg PO DAILY [facility] Last Admin: 09/01/16 10:18 Dose: 100 mg Lisinopril (Prinivil) 20 mg PO BID [facility] Last Admin: 09/01/16 10:18 Dose: 20 mg Metformin HCl (Glucophage -) 1,000 mg PO BIDAC [facility] Last Admin: 09/01/16 08:05 Dose: 1,000 mg Metoprolol Succinate (Toprol Xl -) 300 mg PO DAILY [facility] Last Admin: 09/01/16 10:18 Dose: 300 mg Ondansetron HCl (Zofran Injection) 4 mg IVPB Q6H PRN PRN Reason: NAUSEA AND/OR VOMITING Last Admin: 09/01/16 03:48 Dose: 4 mg Polyethylene Glycol (Miralax (For Daily Use) -) 17 gm PO DAILY [facility] Last Admin: 09/01/16 10:18 Dose: 17 gm Promethazine HCl (Phenergan Injection -) 12.5 mg IVPB Q6H PRN PRN Reason: NAUSEA AND/OR VOMITING Tapentadol (Nucynta -) 50 mg PO Q6HPO [facility] Last Admin: 09/01/16 06:19 Dose: Not Given - Objective Vital Signs: Vital Signs Temperature 98.2 F 09/01/16 08:05 Pulse Rate 62 09/01/16 08:05 Respiratory Rate 16 09/01/16 08:05 Blood Pressure 120/68 09/01/16 08:05 O2 Sat by Pulse Oximetry (%) 100 08/31/16 21:00 Constitutional: Yes: No Distress, Calm Cardiovascular: Yes: Regular Rate and Rhythm Respiratory: Yes: CTA Bilaterally Gastrointestinal: Yes: Normal Bowel Sounds, Soft. No: Distention, Tenderness Edema: No Psychiatric: Yes: Alert, Oriented Labs: CBC, BMP 09/01/16 05:35 09/01/16 05:35 Problem List - Problems (1) Arrhythmia Code(s): I49.9 - CARDIAC ARRHYTHMIA, UNSPECIFIED (2) Post laminectomy syndrome Code(s): M96.1 - POSTLAMINECTOMY SYNDROME, NOT ELSEWHERE CLASSIFIED (3) Abnormal electrocardiogram Code(s): R94.31 - ABNORMAL ELECTROCARDIOGRAM [ECG] [EKG] (4) Diabetes Code(s): E11.9 - TYPE 2 DIABETES MELLITUS WITHOUT COMPLICATIONS (5) HLD (hyperlipidemia) Code(s): E78.5 - HYPERLIPIDEMIA, UNSPECIFIED (6) HTN (hypertension) Code(s): I10 - ESSENTIAL (PRIMARY) HYPERTENSION Assessment/Plan PLAN OOB daily Tele -- Sinus No chest pain or palpitations Pt does not want anticoagulants Will start ASA- pt agreed to take ASA continue with meds IV Dilaudid for pain Incentive spirometry DVT prophylaxis-- SCD
--- NOTE | 2016-09-01 11:55 | PN ---
Progress Note, Physician History of Present Illness: No CV complaints Tele shows NSR 90s - Current Medication List Current Medications: Active Medications Acetaminophen (Tylenol -) 650 mg PO Q6H PRN PRN Reason: FEVER Last Admin: 08/31/16 15:37 Dose: 650 mg Amlodipine Besylate (Norvasc -) 5 mg PO BID [facility] Last Admin: 09/01/16 10:18 Dose: 5 mg Bisacodyl (Dulcolax Suppository -) 10 mg RC DAILY PRN PRN Reason: CONSTIPATION Dexamethasone Sodium Phosphate (Decadron Injection -) 4 mg IVPUSH ONCE PRN PRN Reason: NAUSEA AND/OR VOMITING Diazepam (Valium -) 10 mg PO TID [facility] Last Admin: 09/01/16 05:18 Dose: 10 mg Diphenhydramine HCl (Benadryl Injection -) 12.5 mg IVPUSH ONCE PRN PRN Reason: FOR ITCHING Docusate Sodium (Colace -) 100 mg PO TID [facility] Last Admin: 09/01/16 05:19 Dose: 100 mg Fentanyl (Sublimaze Injection -) 50 mcg IVPUSH [id number] PRN PRN Reason: PAIN Stop: 09/01/16 14:04 Hydrochlorothiazide (Hctz -) 25 mg PO DAILY [facility] Last Admin: 09/01/16 10:19 Dose: 25 mg Hydromorphone HCl (Dilaudid Injection -) 1 mg IVPB Q4H PRN PRN Reason: PAIN Last Admin: 09/01/16 05:20 Dose: 1 mg Potassium Chloride/Dextrose/Sod Cl (D5-1/2ns+20 Meq Kcl -) 1,000 mls @ 42 mls/ hr IV ASDIR [facility] Last Admin: 09/01/16 06:23 Dose: Not Given Insulin Aspart (Novolog Vial Sliding Scale -) 1 vial SQ BIDAC [facility] PRN Reason: Protocol Last Admin: 09/01/16 08:08 Dose: Not Given Lamotrigine (Lamictal -) 100 mg PO DAILY [facility] Last Admin: 09/01/16 10:18 Dose: 100 mg Lisinopril (Prinivil) 20 mg PO BID [facility] Last Admin: 09/01/16 10:18 Dose: 20 mg Metformin HCl (Glucophage -) 1,000 mg PO BIDAC [facility] Last Admin: 09/01/16 08:05 Dose: 1,000 mg Metoprolol Succinate (Toprol Xl -) 300 mg PO DAILY [facility] Last Admin: 09/01/16 10:18 Dose: 300 mg Ondansetron HCl (Zofran Injection) 4 mg IVPB Q6H PRN PRN Reason: NAUSEA AND/OR VOMITING Last Admin: 09/01/16 03:48 Dose: 4 mg Polyethylene Glycol (Miralax (For Daily Use) -) 17 gm PO DAILY [facility] Last Admin: 09/01/16 10:18 Dose: 17 gm Promethazine HCl (Phenergan Injection -) 12.5 mg IVPB Q6H PRN PRN Reason: NAUSEA AND/OR VOMITING Tapentadol (Nucynta -) 50 mg PO Q6HPO [facility] Last Admin: 09/01/16 06:19 Dose: Not Given - Objective Vital Signs: Vital Signs Temperature 98.2 F 09/01/16 08:05 Pulse Rate 62 09/01/16 08:05 Respiratory Rate 16 09/01/16 08:05 Blood Pressure 120/68 09/01/16 08:05 O2 Sat by Pulse Oximetry (%) 100 08/31/16 21:00 Constitutional: Yes: No Distress Eyes: Yes: WNL HENT: Yes: WNL Neck: Yes: WNL Cardiovascular: Yes: WNL, Regular Rate and Rhythm Respiratory: Yes: WNL Extremities: Yes: WNL Edema: No Labs: CBC, BMP 09/01/16 05:35 09/01/16 05:35 Assessment/Plan a/p: 71 f hx htn, hld, dm, NPH s/p shunt, LBP, pafib here for elective back surgery. pafib: -pt reports having a hx of afib for many years with last episode over a year ago. She reports that in past she was told she did not need AC due to brief/ rare episodes. -here in post op setting had episode of afib with rvr, now back in sr -cont tele, cont home bb -pt has indication for AC and discussed risks/benefits with her today but she is reluctant to start AC and said she would like to think about it first. I discussed with her and her family the benefits of NOACs over traditional coumadin. She still wants to "think about it" Continue home asa 81 when ok post op. htn: -cont home meds
[2016-09-01] MEDS ORDERED: ONDANSETRON 4 MG/2 ML VIAL IVPB PRN (15:34)
[2016-09-01] MEDS ORDERED: BISACODYL 10 MG SUPP.RECT RC PRN (15:34)
[2016-09-01] MEDS ORDERED: DEXAMETHASONE SOD PHOSPHATE 4 MG/1 ML VIAL IVPUSH PRN (15:34)
[2016-09-01] MEDS ORDERED: ACETAMINOPHEN 325 MG TABLET (FP) PO PRN (15:34)
[2016-09-01] MEDS ORDERED: HYDROmorphone HCL CARPU-JECT 1 MG/1 ML DISP.SYRIN IVPB PRN (15:34)
[2016-09-01] MEDS ORDERED: PROMETHAZINE HCL 25 MG/1 ML VIAL IVPB PRN (15:34)
[2016-09-01] MEDS ORDERED: D5-1/2NS+20 MEQ KCL - 1,000 ML IV SCH (15:34)
[2016-09-02] MEDS: TAPENTADOL HYDROCHLORIDE 50 MG TABLET PO SCH ×5 (00:39→23:29)
[2016-09-02] MEDS: metFORMIN HCL 500 MG TABLET (FP) PO SCH ×2 (06:30→17:46)
[2016-09-02] MEDS: DOCUSATE SODIUM 100 MG CAPSULE (FP) PO SCH ×3 (06:30→22:15)
[2016-09-02] MEDS: diazePAM 5 MG TABLET PO SCH ×3 (06:30→22:15)
[2016-09-02] MEDS: INSULIN SLIDING SCALE (NOVOLOG) 1 VIAL SQ SCH ×2 (06:32→18:40)
--- NOTE | 2016-09-02 09:03 | PN ---
Progress Note, Physician Chief Complaint: no distress Pain is better tolerated now steady gait - Current Medication List Current Medications: Active Medications Acetaminophen (Tylenol -) 650 mg PO Q6H PRN PRN Reason: FEVER Amlodipine Besylate (Norvasc -) 5 mg PO BID [facility] Last Admin: 09/01/16 21:27 Dose: 5 mg Aspirin (Ecotrin -) 81 mg PO DAILY [facility] Bisacodyl (Dulcolax Suppository -) 10 mg RC DAILY PRN PRN Reason: CONSTIPATION Diazepam (Valium -) 10 mg PO TID [facility] Last Admin: 09/02/16 06:30 Dose: 10 mg Docusate Sodium (Colace -) 100 mg PO TID [facility] Last Admin: 09/02/16 06:30 Dose: 100 mg Hydrochlorothiazide (Hctz -) 25 mg PO DAILY [facility] Hydromorphone HCl (Dilaudid Injection -) 1 mg IVPB Q4H PRN PRN Reason: PAIN Insulin Aspart (Novolog Vial Sliding Scale -) 1 vial SQ BIDAC [facility] PRN Reason: Protocol Last Admin: 09/02/16 06:32 Dose: Not Given Lamotrigine (Lamictal -) 100 mg PO DAILY [facility] Lisinopril (Prinivil) 20 mg PO BID [facility] Last Admin: 09/01/16 21:30 Dose: 20 mg Metformin HCl (Glucophage -) 1,000 mg PO BIDAC [facility] Last Admin: 09/02/16 06:30 Dose: 1,000 mg Metoprolol Succinate (Toprol Xl -) 300 mg PO DAILY [facility] Ondansetron HCl (Zofran Injection) 4 mg IVPB Q6H PRN PRN Reason: NAUSEA AND/OR VOMITING Polyethylene Glycol (Miralax (For Daily Use) -) 17 gm PO DAILY [facility] Promethazine HCl (Phenergan Injection -) 12.5 mg IVPB Q6H PRN PRN Reason: NAUSEA AND/OR VOMITING Tapentadol (Nucynta -) 50 mg PO Q6HPO [facility] Last Admin: 09/02/16 06:31 Dose: 50 mg - Objective Vital Signs: Vital Signs Temperature 97.8 F 09/02/16 06:22 Pulse Rate 80 09/02/16 06:22 Respiratory Rate 20 09/02/16 06:22 Blood Pressure 136/81 09/02/16 06:22 O2 Sat by Pulse Oximetry (%) 93 L 09/01/16 21:00 Constitutional: Yes: No Distress Cardiovascular: Yes: Regular Rate and Rhythm Respiratory: Yes: CTA Bilaterally Gastrointestinal: Yes: Normal Bowel Sounds, Soft, Abdomen, Obese. No: Distention, Tenderness Edema: No Labs: CBC, BMP 09/01/16 05:35 09/01/16 05:35 Problem List - Problems (1) Arrhythmia Code(s): I49.9 - CARDIAC ARRHYTHMIA, UNSPECIFIED (2) Post laminectomy syndrome Code(s): M96.1 - POSTLAMINECTOMY SYNDROME, NOT ELSEWHERE CLASSIFIED (3) Abnormal electrocardiogram Code(s): R94.31 - ABNORMAL ELECTROCARDIOGRAM [ECG] [EKG] (4) Diabetes Code(s): E11.9 - TYPE 2 DIABETES MELLITUS WITHOUT COMPLICATIONS (5) HLD (hyperlipidemia) Code(s): E78.5 - HYPERLIPIDEMIA, UNSPECIFIED (6) HTN (hypertension) Code(s): I10 - ESSENTIAL (PRIMARY) HYPERTENSION Assessment/Plan PLAN OOB daily Sinus No chest pain or palpitations Pt does not want anticoagulants started ASA- pt agreed to take ASA continue with meds pain control Incentive spirometry DVT prophylaxis-- SCD dc planning
[2016-09-02] MEDS: METOPROLOL SUCCINATE 100 MG TAB.SR.24H (FP) PO SCH (09:41)
[2016-09-02] MEDS: amLODIPine BESYLATE 5 MG TABLET (FP) PO SCH ×2 (09:42→22:15)
[2016-09-02] MEDS: ASPIRIN COATED 81 MG TABLET.EC PO SCH (09:42)
[2016-09-02] MEDS: LISINOPRIL 20 MG TABLET (FP) PO SCH ×2 (09:42→22:15)
[2016-09-02] MEDS: HYDROCHLOROTHIAZIDE 25 MG TABLET (FP) PO SCH (09:42)
[2016-09-02] MEDS: lamoTRIgine 100 MG TABLET (FP) PO SCH (09:43)
--- NOTE | 2016-09-02 09:45 | PN ---
Progress Note (short form) - Note Progress Note: NEUROSURGERY POD #4 Incisional pain Walking to bathroom Back on floor care Minimal BM,will try Miralax No C/P or dyspnea at bedside Tmax 99.1, AF, VSS PE: A/A/Ox3 CV- RR; Lungs-CTA B; Abd- benign, + BS; Ext- no sign of DVT Dressing with minimal old serosangrenous drainage on bottom - cleaned with betadine and dressing chaged Motor at least 4+ B LE and UE LS spine x-rays- good position of L2-4 implants and alignment Nucynta and iv dilaudid PRN OOB with LSO brace Incentive spirometry Observe temp Rehab discussed though pt states she is walking well > 50 ft If afebrile without drainage could d/c home tomorrow
[2016-09-02] MEDS: POLYETHYLENE GLYCOL 3350 119 GM BTL PO SCH (09:53)
[2016-09-03] MEDS ORDERED: PT OWN MED DRAWER 7, Y5N ONE ×2 (05:29→09:26)
[2016-09-03] MEDS: INSULIN SLIDING SCALE (NOVOLOG) 1 VIAL SQ SCH (06:27)
[2016-09-03] MEDS: metFORMIN HCL 500 MG TABLET (FP) PO SCH (06:27)
[2016-09-03] MEDS: DOCUSATE SODIUM 100 MG CAPSULE (FP) PO SCH (06:27)
[2016-09-03] MEDS: TAPENTADOL HYDROCHLORIDE 50 MG TABLET PO SCH (06:28)
[2016-09-03] MEDS: diazePAM 5 MG TABLET PO SCH (06:30)
--- NOTE | 2016-09-03 07:45 | PN ---
Progress Note (short form) - Note Progress Note: NEUROSURGERY POD #5 Incisional pain Walking to elevator and solarium No sciatica + BM yesterday No C/P or dyspnea AF, VSS PE: A/A/Ox3 CV- RR; Lungs-CTA B; Abd- benign, + BS; Ext- no sign of DVT Dressing with no drainage - dressing changed Motor 5/5 B LE and UE LS spine x-rays- good position of L2-4 implants and alignment Nucynta eRx'd OOB with LSO brace Incentive spirometry Discharge instructions given
[2016-09-03 08:44] VITALS: BP 125/87; PULSE 84; TEMP 97.6
--- NOTE | 2016-09-03 08:59 | PN ---
Progress Note (short form) - Note Progress Note: Subjective Patient seen and examined. Chart reviewed. Sitting in chair. Ready to go home. Objective Last Vital Signs Temp Pulse Resp BP Pulse Ox 97.6 F 84 18 125/87 94 L 09/03/16 08:43 09/03/16 08:43 09/03/16 08:43 09/03/16 08:43 09/02/16 21:00 Laboratory Results - last 24 hr 09/02/16 09/03/16 17:43 06:26 POC Glucometer 118 132 CBC, BMP 09/01/16 05:35 09/01/16 05:35 Physical Exam Constitutional: Yes: No Distress Cardiovascular: Yes: Regular Rate and Rhythm Respiratory: Yes: CTA Bilaterally Gastrointestinal: Yes: Normal Bowel Sounds, Soft, Abdomen, Obese. No: Distention, Tenderness Edema: No Problem List - Problems (1) Arrhythmia Code(s): I49.9 - CARDIAC ARRHYTHMIA, UNSPECIFIED (2) Post laminectomy syndrome Code(s): M96.1 - POSTLAMINECTOMY SYNDROME, NOT ELSEWHERE CLASSIFIED (3) Abnormal electrocardiogram Code(s): R94.31 - ABNORMAL ELECTROCARDIOGRAM [ECG] [EKG] (4) Diabetes Code(s): E11.9 - TYPE 2 DIABETES MELLITUS WITHOUT COMPLICATIONS (5) HLD (hyperlipidemia) Code(s): E78.5 - HYPERLIPIDEMIA, UNSPECIFIED (6) HTN (hypertension) Code(s): I10 - ESSENTIAL (PRIMARY) HYPERTENSION Assessment and Plan Stable. Pain under control. D/c today. Patient to continue PT at home and follow up with her neurosurgeon To follow in office also. Patient declines to start on anticoagulation-- risks and benefits discussed. Continue aspirin. All above discussed with patient's who is also with her. Documentation prepared by Yulia Henley, acting as a medical office specialist for Jimmy Arnett MD.
[2016-09-03] MEDS: METOPROLOL SUCCINATE 100 MG TAB.SR.24H (FP) PO SCH (09:39)
[2016-09-03] MEDS: lamoTRIgine 100 MG TABLET (FP) PO SCH (09:40)
[2016-09-03] MEDS: LISINOPRIL 20 MG TABLET (FP) PO SCH (09:40)
[2016-09-03] MEDS: HYDROCHLOROTHIAZIDE 25 MG TABLET (FP) PO SCH (09:40)
[2016-09-03] MEDS: amLODIPine BESYLATE 5 MG TABLET (FP) PO SCH (09:40)
[2016-09-03] MEDS: ASPIRIN COATED 81 MG TABLET.EC PO SCH (09:40)
[2016-09-03] MEDS: POLYETHYLENE GLYCOL 3350 119 GM BTL PO SCH (09:41)
== END 2016-09-03 10:04 | disposition home health service (06) | DRG 460 ==
LOC: JSAMEDAYSX 05:13 → J8W 16:30 → J4W 08-31 09:21 → J8W 09-01 15:06
PROVIDERS: ADMIT Neurological Surgery; ATTEND Neurological Surgery
PROC: 0SG00A1 (ICD-10-PCS; 2016-08-29)
PROC: 0SB40ZZ Excision of Lumbosacral Disc, Open Approach (ICD-10-PCS; 2016-08-29)
PROC: 0SP00AZ Removal of Interbody Fusion Device from Lumbar Vertebral Joint, Open Approach (ICD-10-PCS; 2016-08-29)
PROC: 0QU007Z Supplement Lumbar Vertebra with Autologous Tissue Substitute, Open Approach (ICD-10-PCS; 2016-08-29)
PROC: 00NY0ZZ Release Lumbar Spinal Cord, Open Approach (ICD-10-PCS; principal; 2016-08-29 08:00)
DX: M51.16 Intervertebral disc disorders with radiculopathy, lumbar region (principal); I48.92 Unspecified atrial flutter; M48.06 Spinal stenosis, lumbar region; I10 Essential (primary) hypertension; E11.9 Type 2 diabetes mellitus without complications; M96.1 Postlaminectomy syndrome, not elsewhere classified; E78.5 Hyperlipidemia, unspecified; I48.0 Paroxysmal atrial fibrillation; R07.89 Other chest pain
CPT/HCPCS: 36415; 72100-TC; 76000-TC; 80048; 80053; 82550; 84484; 85025; 85027; 86850; 86900; 86901; 87086; 88300-TC; 88304-TC; 93005; 93010; 94010; 94760; 97116-GP; 97161

== ENCOUNTER 2017-01-05 08:37 | Emergency (ER) | payer OTHER, MEDICARE ==
[2017-01-05 08:42] VITALS: BMI 26.6
--- NOTE | 2017-01-05 09:52 | PDOC ---
History of Present Illness - General Chief Complaint: Altered Mental Status Stated Complaint: HEADACHE/DISORIENTED Time Seen by Provider: 01/05/17 09:45 History Source: Patient, Spouse Exam Limitations: No Limitations - History of Present Illness Initial Comments: 01/05/17 11:04 This 71 yr old female presents with her with c/o right sided head pain, a bout of blurry vision, and a short bout of confusion upon awaiting today. significant past medical history of hypertension, transient ischemic attack, SVTs s/p EPS, non-insulin dependent diabetes mellitus, colonoscopic polypectomies, colon adenomas, diverticulosis and seizures with NPH s/p shunt insertion(2004), herniated discs, spinal stenosis, Past Surgical History: TAHBSO for fibroids. Hemorrhoidectomy. Breast reduction. Tonsillectomy. Bilateral iridectomies. Nasal basal cell carcinoma excision. Spinal stenosis surgery (July 2014). Social History: Former smoker (Quit 1980). ETOH use. No recreational drug use. Family Past Medical History: Father (Ischemic Heart Disease- at 55). Mother (Alzheimers disease and Cerebrovascular Accident- Alive. Brother ( Malignant tumor of the colon- at age 55) Primary Care Physician: Dr. Lorelei Oropeza [phone]/ [phone] Neurosurgeon: Dr. Kalyan Perez [phone] Shunt placement is from [facility] in [place] Timing/Duration: other Severity: moderate Associated Symptoms: reports: headaches Past History - Travel Traveled outside of the country in the last 30 days: No Close contact w/someone who was outside of country & ill: No - Past Medical History Allergies/Adverse Reactions: Allergies Allergy/AdvReac Type Severity Reaction Status Date / Time No Known Drug Allergies Allergy Verified 01/05/17 08:41 Home Medications: Ambulatory Orders Amlodipine Besylate/Benazepril [Lotrel 5-20 mg Capsule] 1 each PO BID 04/08/14 Lamotrigine 100 mg PO DAILY 04/08/14 Metformin HCl [Glucophage] 1,000 mg PO BID 04/08/14 Metoprolol Succinate [Toprol XL -] 300 mg PO DAILY 04/08/14 Polyethylene Glycol 3350 [Miralax 119 gm Btl -] 17 gm PO DAILY 04/08/14 Aspirin [ASA -] 81 mg PO DAILY #0 04/09/14 Cyanocobalamin [Vitamin B12 -] 1,000 mcg PO DAILY 08/06/14 Hydrochlorothiazide [Hctz -] 25 mg PO DAILY 08/16/14 Lisinopril [Prinivil] 20 mg PO BID tablet 09/02/16 Tapentadol Hydrochloride [Nucynta -] 50 mg PO Q6HPO #60 tablet MDD 4 09/02/16 Oxycodone HCl 10 mg PO QID #60 tablet MDD 4 09/03/16 Anemia: No Asthma: No Cancer: Yes (NASAL BASAL CELL CARCINOMA) Cardiac Disorders: Yes (SVT-HAD EPC) Hx Myocardial Infarction: No CVA: Yes (TIA) COPD: No CHF: No DVT: No Dementia: No Diabetes: Yes (NIDDM) Dialysis: No GI Disorders: Yes (POLYPS; DIVERTICULOASIS) Disorders: No HTN: Yes Hypercholesterolemia: No HIV: No Kidney Stones: No Liver Disease: No Psychiatric Problems: No Seizures: Yes (WITH NPH) Thyroid Disease: No Lung CA: No Other medical history: has brain shunt - Surgical History Neurologic Surgery: Yes (HYDROCEPHALUS,SHUNT INSERTION 2004) - Suicide/Smoking/Psychosocial Hx Smoking History: Never smoked Have you smoked in the past 12 months: No If you are a former smoker, when did you quit?: 40YRS AGO Information on smoking cessation initiated: No Hx Alcohol Use: No Drug/Substance Use Hx: No Substance Use Type: None Hx Substance Use Treatment: No Review of Systems - Review of Systems Able to Perform ROS?: Yes Constitutional: Yes: Weakness HEENTM: Yes: Blurred Vision Respiratory: No: Symptoms reported Cardiac (ROS): No: Symptoms Reported ABD/GI: No: Symptoms Reported : No: Symptoms Reported Musculoskeletal: No: Symptoms Reported Integumentary: No: Symptoms Reported Neurological: Yes: Headache, Weakness, Unsteady Gait Psychiatric: Yes: Other (bouts of confusion per family) *Physical Exam - Vital Signs Last Vital Signs Temp Pulse Resp BP Pulse Ox 98.1 F 65 19 135/83 98 01/05/17 08:40 01/05/17 08:40 01/05/17 08:40 01/05/17 08:40 01/05/17 08:40 - Physical Exam General Appearance: Yes: Nourished, Appropriately Dressed HEENT: positive: Normal ENT Inspection (bilateral orbital implants) Neck: positive: Trachea midline Respiratory/Chest: positive: Lungs Clear Cardiovascular: positive: Other (higher HR with ectopy frequent) Gastrointestinal/Abdominal: positive: Flat, Soft Musculoskeletal: positive: Normal Inspection, Other (no neck pain, FROM) Extremity: positive: Normal Capillary Refill Integumentary: positive: Normal Color, Dry, Warm Neurologic: 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 negative: Confused (while in ER) ED Treatment Course - LABORATORY CBC & Chemistry Diagram: 01/05/17 10:23 01/05/17 10:23 Medical Decision Making - Medical Decision Making 01/05/17 12:47 This 71 year old female with [facility] with THERAPY TEACHER shunt: She developed right side head pain and pressure over the last few days. Her brought her in. Pt under went Head CT and "shunt series" xray's with the finding of moderate distention of lateral and third ventricle with temporal horn dilation and mild hydrocephalis contacted Dr. Chris GIVENS as pt requests. Spoke with him, and because he did not put the shunt in he is asking for Dr. Wilson (who put shunt in to see pt) Contacted Dr. Wilson and his service states he does not take calls from the ER Contacted Dr. Oropeza reg: admiission and is requesting contact to pt Neurologist first Contacted Dr. Sosa, Neuro Pt received morphine 2 mg for pain 01/05/17 12:58 01/05/17 13:[address] Sosa and explained pt is here with right side head pain, bouts of blurry vision, and confusion as well as discussion of pt Head CT findings. His assessment is pt has a "migraine" and to treat her for it and discharge her. I expressed my concern of her symptoms and the families concerns but he said for discharge and follow up in the office on Saturday. Called Dr. Oropeza regarding discussion of pt neurologist and her symptoms. 01/05/17 16:10 After a discussion with her primary neurologist Dr. Wilson he would accept pt in [place] but not available until Saturday. Dr. Paulson and myself discussed transfer and pt was accepted in [facility] under Dr. Matthews for evaluation and work up of her VPS CD made, transfer arranged. Family presnet and aware. *DC/Admit/Observation/Transfer Diagnosis at time of Disposition: Hydrocephalus - Discharge Dispostion Disposition: TRANSFER ACUTE CARE/OTHER HOSP Condition at time of disposition: Unchanged/Unknown Admit: No - Referrals Referrals: Lorelei Oropeza MD [Primary Care Provider] - - Patient Instructions Printed Discharge Instructions: DI for Ventriculoperitoneal Shunt-Adult - Transfer to Acute Care Facility Receiving Facility: [facility]. Accepting Physician:: Dr. Matthews
[2017-01-05 10:36] LABS: BASOPHIL 1.3 % (0-2.0); EOSINOPHIL 5.4 % (0-4.5); MCH 27.6 pg (25.7-33.7); MCHC 32.6 g/dl (32.0-36.0); MEAN CELL VOLUME 84.9 fl (80-96); MEAN PLT VOLUME 10.1 fl (7.5-11.1); NEUTROPHILS 56.9 % (42.8-82.8); PLATELET COUNT 167 K/MM3 (134-434); RDW 14.3 % (11.6-15.6); WHITE BLOOD COUNT 7.1 K/mm3 (4.0-10.0)
[2017-01-05 10:58] LABS: INR 0.94 (0.82-1.09); PROTHROMBIN TIME (PATIENT) 10.3 SEC (9.98-11.88)
[2017-01-05 11:00] LABS: ACTIVATED PTT 27.6 SECONDS (26.9-34.4)
[2017-01-05 11:01] LABS: ALBUMIN 3.9 g/dl (3.4-5.0); ALK PHOS 59 U/L (45-117); ANION GAP 9 (8-16); BILIRUBIN,TOTAL 0.4 mg/dL (0.2-1.0); CALCIUM 9.7 mg/dL (8.5-10.1); CO2 25 mmol/L (21-32); CREATININE 0.6 mg/dL (0.55-1.02); GLUCOSE,RANDOM 117 mg/dL (74-106); SGOT/AST 15 U/L (15-37); SGPT/ALT 20 U/L (12-78); TOT PROT 7.1 g/dl (6.4-8.2)
[2017-01-05] MEDS ORDERED: morphine CARPU-JECT 2 MG/1 ML DISP.SYRIN ONE (12:42)
[2017-01-05] MEDS ORDERED: morphine CARPU-JECT 2 MG/1 ML DISP.SYRIN IVPUSH ONE (13:09)
[2017-01-05 13:51] LABS: URINE APPEARANCE CLEAR; URINE BILIRUBIN NEGATIVE (NEGATIVE); URINE BLOOD NEGATIVE (NEGATIVE); URINE COLOR STRAW; URINE GLUCOSE (UA) NEGATIVE (NEGATIVE); URINE KETONE TRACE (NEGATIVE); URINE NITRITE NEGATIVE (NEGATIVE); URINE PROTEIN NEGATIVE (NEGATIVE); URINE UROBILINOGEN NEGATIVE mg/dL (0.2-1.0)
[2017-01-05 16:59] LABS: URINE LEUK ESTERASE Negative (NEGATIVE)
[2017-01-05 17:16] VITALS: BP 154/93; PULSE 78; TEMP 98
--- NOTE | 2017-01-05 18:38 | EKG ---
Test Reason : Blood Pressure : / mmHG Vent. Rate : 062 BPM Atrial Rate : 062 BPM P-R Int : 150 ms QRS Dur : 100 ms QT Int : 416 ms P-R-T Axes : 042 017 006 degrees QTc Int : 422 ms POOR DATA QUALITY, INTERPRETATION MAY BE ADVERSELY AFFECTED NORMAL SINUS RHYTHM NONSPECIFIC ST AND T WAVE ABNORMALITY ABNORMAL ECG WHEN COMPARED WITH ECG OF 31-AUG-2016 08:58, SINUS RHYTHM HAS REPLACED ATRIAL FLUTTER VENT. RATE HAS DECREASED BY 92 BPM REPEAT EKG IF CLINICALLY INDICATED Confirmed by BALAJI TERRY MD ([id number]) on 01/05/2017 6:37:59 PM Referred By: Confirmed By:BALAJI TERRY MD
== END 2017-01-05 17:16 | disposition short-term general hospital (02) ==
LOC: JER 08:37
PROC: 3E033NZ Introduction of Analgesics, Hypnotics, Sedatives into Peripheral Vein, Percutaneous Approach (ICD-10-PCS; principal; 2017-01-05)
DX: G91.9 Hydrocephalus, unspecified (principal); I10 Essential (primary) hypertension; Z86.73 Personal history of transient ischemic attack (TIA), and cerebral infarction without residual deficits; R00.0 Tachycardia, unspecified; E11.9 Type 2 diabetes mellitus without complications; G40.909 Epilepsy, unspecified, not intractable, without status epilepticus; M48.00 Spinal stenosis, site unspecified; Z87.891 Personal history of nicotine dependence; Z79.84 Long term (current) use of oral hypoglycemic drugs; Z79.82 Long term (current) use of aspirin; Z85.828 Personal history of other malignant neoplasm of skin
CPT/HCPCS: 36415; 70360-TC; 70450-TC; 71020-TC; 74020-TC; 80053; 81003; 85025; 85610; 85730; 93005; 93010; 96374; 99285-25

== ENCOUNTER 2018-10-16 08:02 | Day surgery (SDC) | payer OTHER, MEDICARE ==
[2018-10-15 11:35] VITALS: BMI 24.3
[2018-10-16] MEDS ORDERED: BUPIVACAINE HCL/PF 0.5% (5MG/ML) 10 ML VIAL ONE (09:40)
[2018-10-16] MEDS ORDERED: methylPREDNISolone ACET (DEPO) 80 MG/1 ML VIAL ONE (09:40)
[2018-10-16] MEDS ORDERED: PROMETHAZINE HCL 25 MG/1 ML VIAL IVPUSH PRN (09:54)
[2018-10-16] MEDS ORDERED: LACTATED RINGERS SOLUTION 1,000 ML IV SCH (10:00)
[2018-10-16] MEDS ORDERED: MIDAZOLAM HCL 2 MG/2 ML SINGLE DOSE VIAL ONE (10:02)
[2018-10-16] MEDS ORDERED: PROPOFOL 20 ML ONE (10:16)
[2018-10-16] MEDS ORDERED: LIDOCAINE HCL 1%, 10 MG/ML (20ML VIAL) NR ONE (10:23)
[2018-10-16] MEDS ORDERED: BUPIVACAINE HCL/PF (5 MG/ML) 30 ML VIAL IJ ONE (10:24)
[2018-10-16] MEDS ORDERED: methylPREDNISolone ACET (DEPO) 80 MG/1 ML VIAL IJ ONE (10:25)
[2018-10-16 12:22] VITALS: BP 120/67; PULSE 54; TEMP 97.5
--- NOTE | 2018-10-16 12:26 | OP ---
DATE OF OPERATION: 10/16/2018 PREOPERATIVE DIAGNOSES: 1. Right L1-2 disk herniation with right L2 radiculopathy. 2. History of L2 to L4 fusion. POSTOPERATIVE DIAGNOSES: 1. Right L1-2 disk herniation with right L2 radiculopathy. 2. History of L2 to L4 fusion. ATTENDING SURGEON: Chen Gonzalez MD PROCEDURE: 1. Right L1-2 epidural steroid injection. 2. Intraoperative fluoroscopy. ANESTHESIA: Local with IV sedation. RAT EXTERMINATOR: John Valerio, REF-TICKET BROKER INDICATION: The patient is a 73-year-old female with history of lumbar fusion first at L3-4 and then L2-3. She developed recurrent right-sided radiculopathy and was found to have a right L1-2 paracentral disk herniation. She is here for the 1st epidural steroid injection because of intractable and recurrent pain. The risks of the procedure include but are not limited to bleeding, infection, spinal headache and neurologic injury. The patient understands indication for the procedure, procedure in detail, risks and benefits and alternative forms of treatment for her lumbar condition and wished to proceed. No guarantees were given for a favorable outcome. PROCEDURE IN DETAIL: The patient was taken to the operating room. She was placed in a prone position with a pillow under her hips. Lumbar region cleaned with alcohol and prepped with Betadine. Skin wheal was raised with 5 mL of 1% Xylocaine. A 22-gauge spinal needle was inserted under AP and lateral fluoroscopic guidance from right-sided approach at L1-2. Loss of resistance technique was utilized. There was no CSF or blood backflow. Depo-Medrol 80 mg and 1 mL of 0.25% Marcaine were injected. The needle was withdrawn and sterile bandage was applied. The patient tolerated the procedure well. Was turned back to supine position, moving bilateral extremities well. She did not complain of a headache. CHEN GONZALEZ M.D. [id number]
== END 2018-10-16 12:22 | disposition home or self-care (01) ==
LOC: JASU-SURG 08:02
PROVIDERS: ATTEND Neurological Surgery
PROC: 3E0R33Z Introduction of Anti-inflammatory into Spinal Canal, Percutaneous Approach (ICD-10-PCS; 2018-10-16)
PROC: B01BZZZ Fluoroscopy of Spinal Cord (ICD-10-PCS; 2018-10-16)
PROC: 3E0R3BZ Introduction of Anesthetic Agent into Spinal Canal, Percutaneous Approach (ICD-10-PCS; principal; 2018-10-16 10:00)
DX: M51.16 Intervertebral disc disorders with radiculopathy, lumbar region (principal)
CPT/HCPCS: 76000-TC-FY; 82962

== ENCOUNTER 2018-11-24 06:27 | Day surgery (SDC) | payer OTHER, MEDICARE ==
[2018-11-21 16:23] VITALS: BMI 24.3
[2018-11-24 06:47] VITALS: TEMP 98.4
[2018-11-24] MEDS ORDERED: BUPIVACAINE HCL/PF 0.25% (2.5MG/ML) 10 ML VIAL ONE (07:17)
[2018-11-24] MEDS ORDERED: LIDOCAINE HCL 1%, 10 MG/ML (20ML VIAL) ONE (07:18)
[2018-11-24] MEDS ORDERED: methylPREDNISolone ACET (DEPO) 80 MG/1 ML VIAL ONE (07:19)
[2018-11-24] MEDS ORDERED: MIDAZOLAM HCL 2 MG/2 ML SINGLE DOSE VIAL ONE ×2 (08:07→08:13)
[2018-11-24] MEDS ORDERED: BUPIVACAINE HCL 0.25% 125 MG/50 ML VIAL INF ONE (08:21)
[2018-11-24] MEDS ORDERED: LIDOCAINE HCL 1%, 10 MG/ML (20ML VIAL) INF ONE (08:21)
[2018-11-24] MEDS ORDERED: methylPREDNISolone ACET (DEPO) 80 MG/1 ML VIAL IM ONE (08:21)
[2018-11-24] MEDS ORDERED: GLYCOPYRROLATE 0.2 MG/1 ML VIAL ONE (09:13)
[2018-11-24 09:49] VITALS: BP 106/64; PULSE 71
[2018-11-24] MEDS ORDERED: ONDANSETRON 4 MG/2 ML VIAL IVPUSH PRN (11:11)
[2018-11-24] MEDS ORDERED: ACETAMINOPHEN 325 MG TABLET (FP) PO PRN (11:11)
[2018-11-24] MEDS ORDERED: oxyCODONE HCL 5 MG TABLET PO PRN (11:11)
[2018-11-24] MEDS ORDERED: LACTATED RINGERS SOLUTION 1,000 ML IV SCH (11:15)
--- NOTE | 2018-11-24 12:24 | OP ---
DATE OF OPERATION: 11/24/2018 PREOPERATIVE DIAGNOSIS: L1-2 facet disease with back pain. HISTORY OF PRESENT ILLNESS: Patient has undergone a history of L3-4 then L2-3 laminectomy and fusion. She did have L1-2 facet disease. She had previously undergone 1 epidural steroid injection with improvement in her radiculopathy, but her axillary mechanical back pain remains. She is here for her L1-2 facet block. Risks of procedure include, but are not limited to, bleeding, infection, spinal headache, and neurologic injury. The patient understands indication for procedure, procedure in detail, risks and benefits, and alternatives for treatment of condition and wished to proceed. No guarantees are given for a favorable outcome. ATTENDING SURGEON: Kalyan Gonzalez MD ANESTHESIA: Marshall Kaufman MD, local with IV sedation. COMPLICATIONS: None. PROCEDURE IN DETAIL: After patient was taken to the operating room, she was placed in a prone position with a pillow under her hips. Lumbar region was cleaned with alcohol and prepped with Betadine. Skin wheal was raised with 5 mL of 1% plain Xylocaine. A 20-degree spinal needle was inserted under AP fluoroscopic guidance towards the right L5, 1, 2 facet joint in the inferolateral quadrant. The needle bevel was turned laterally. There was no blood loss, CSF, or backflow. The position was verified by fluoroscopy imaging in the AP and lateral planes, 80 mg of Depo-Medrol and 1 mL of 0.25% Marcaine were injected. The needle was withdrawn. Sterile bandage was applied. The patient tolerated the procedure well and moved bilateral lower extremities well. She is not complaining of headache. KALYAN GONZALEZ M.D. [id number]
== END 2018-11-24 09:51 | disposition home or self-care (01) ==
LOC: JASU-SURG 06:27
PROVIDERS: ATTEND Neurological Surgery
PROC: 3E0T33Z Introduction of Anti-inflammatory into Peripheral Nerves and Plexi, Percutaneous Approach (ICD-10-PCS; 2018-11-24)
PROC: BR16YZZ Fluoroscopy of Lumbar Facet Joint(s) using Other Contrast (ICD-10-PCS; 2018-11-24)
PROC: 3E0T3BZ Introduction of Anesthetic Agent into Peripheral Nerves and Plexi, Percutaneous Approach (ICD-10-PCS; principal; 2018-11-24 08:00)
DX: M51.36 Other intervertebral disc degeneration, lumbar region (principal); M54.16 Radiculopathy, lumbar region; M96.1 Postlaminectomy syndrome, not elsewhere classified; M54.5 Low back pain; I10 Essential (primary) hypertension; E11.9 Type 2 diabetes mellitus without complications
CPT/HCPCS: 76000-TC-FY

== ENCOUNTER 2019-02-23 04:51 | Inpatient (IN) | payer OTHER, MEDICARE ==
[2019-02-20 11:29] VITALS: BMI 25.8
[~2019-02-23 04:51] MED LIST changes: +BACITRACIN 15 GM TUBE TOPICAL OINTMENT TP ONE; -BACITRACIN 30 GM TUBE TOPICAL OINTMENT TP ONE; +BACITRACIN 50,000 UNITS VIAL TP ONE; +BUPIVACAINE HCL/PF 0.5% (5 MG/ML) 30 ML VIAL IJ ONE; +GELATIN SPONGE,ABSORBABLE 1 GM PACKET TP ONE; +THROMBIN (BOVINE) 5,000 UNIT VIAL TP ONE; +ceFAZolin SODIUM 1 GM VIAL IVPB ONE
[2019-02-23] MEDS ORDERED: THROMBIN (BOVINE) 5,000 UNIT VIAL TP ONE ×2 (07:11→09:05)
[2019-02-23] MEDS ORDERED: BACITRACIN 15 GM TUBE TOPICAL OINTMENT ONE (07:11)
[2019-02-23] MEDS ORDERED: fentaNYL CITRATE 250 MCG/5 ML VIAL ONE (07:48)
[2019-02-23] MEDS ORDERED: PROPOFOL 20 ML ONE ×14 (07:48→11:12)
[2019-02-23] MEDS ORDERED: MIDAZOLAM HCL 2 MG/2 ML SINGLE DOSE VIAL ONE ×3 (07:48→14:59)
[2019-02-23] MEDS ORDERED: ROCURONIUM BROMIDE 50 MG/5 ML SYRINGE ONE (07:48)
[2019-02-23] MEDS ORDERED: ceFAZolin SODIUM 1 GM VIAL IVPB ONE (08:35)
[2019-02-23] MEDS ORDERED: BUPIVACAINE HCL/PF 0.5% (5 MG/ML) 30 ML VIAL IJ ONE ×2 (08:49→11:57)
[2019-02-23] MEDS ORDERED: BACITRACIN 50,000 UNITS VIAL TP ONE ×2 (09:05→11:58)
[2019-02-23] MEDS ORDERED: GELATIN SPONGE,ABSORBABLE 1 GM PACKET TP ONE (09:05)
[2019-02-23] MEDS ORDERED: ePHEDrine SULFATE 50 MG/1 ML AMPULE ONE (11:41)
[2019-02-23] MEDS ORDERED: ONDANSETRON 4 MG/2 ML VIAL IVPUSH PRN ×3 (11:59→12:59)
--- NOTE | 2019-02-23 12:18 | OP ---
Operative Note - Note: Operative Date: 02/23/19 Pre-Operative Diagnosis: L1-2 HNP, stenosis, radiculopathy, DDD, spondylolisthesis Operation: Extension of prior laminectomies B L2 and new B L1 laminectomies including discectomies for decompression, interbody and posterolateral fusion, removal of prior locking screws, rods and L4 pedicle screws; new L1 pedicle screws and rods/locking screws; fluoroscopy; harvest of autologous bone graft; microdissection Findings: L1-2 HNP, stenosis, sensitive roots, instability L1-2 Surgeon: Kalyan Perez Rod Puller: Waldo Ramos Anesthesiologist/ACCOUNT MANAGER B2B: Marlene Dumont MD Anesthesia: General Specimens Removed: L1-2 HNP Estimated Blood Loss (mls): 300
[2019-02-23] MEDS ORDERED: D5-1/2NS+20 MEQ KCL - 1,000 ML IV SCH (12:30)
[2019-02-23] MEDS ORDERED: BISACODYL 10 MG SUPP.RECT RC PRN (12:30)
[2019-02-23] MEDS ORDERED: BACITRACIN 15 GM TUBE TOPICAL OINTMENT TP ONE (12:33)
[2019-02-23] MEDS ORDERED: HYDROmorphone *PCA* 10MG/50ML DISP.SYRIN ONE (12:55)
[2019-02-23] MEDS ORDERED: DEXAMETHASONE SOD PHOSPHATE 4 MG/1 ML VIAL IVPUSH PRN (12:59)
[2019-02-23] MEDS ORDERED: HYDROmorphone *PCA* 10MG/50ML DISP.SYRIN PCA SCH (13:00)
--- NOTE | 2019-02-23 13:08 | PN ---
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
[2019-02-23 13:50] LABS: HEMATOCRIT 34.7 % (32.4-45.2); HEMOGLOBIN 11.7 GM/dL (10.7-15.3); MCH 29.8 pg (25.7-33.7); MCHC 33.6 g/dl (32.0-36.0); MEAN CELL VOLUME 88.8 fl (80-96); MEAN PLT VOLUME 10.1 fl (7.5-11.1); PLATELET COUNT 144 K/MM3 (134-434); RBC 3.91 M/mm3 (3.60-5.2); RDW 12.7 % (11.6-15.6); WHITE BLOOD COUNT 7.3 K/mm3 (4.0-10.0)
[2019-02-23 14:13] LABS: BLOOD UREA NITROGEN 21.4 mg/dL (7-18); CREATININE 0.9 mg/dL (0.55-1.3)
[2019-02-23] MEDS: GABAPENTIN 100 MG CAPSULE (FP) PO SCH ×2 (16:55→21:45)
[2019-02-23] MEDS: DOCUSATE SODIUM 100 MG CAPSULE (FP) PO SCH ×2 (16:55→21:44)
[2019-02-23] MEDS: diazePAM 5 MG TABLET PO SCH ×2 (16:55→21:45)
[2019-02-23] MEDS: LACTATED RINGERS SOLUTION 1,000 ML IV SCH (17:00)
[2019-02-23] MEDS ORDERED: ceFAZolin SODIUM 1 GM VIAL ONE (17:08)
[2019-02-23] MEDS ORDERED: DEXTROSE 5%-WATER - 50 ML IVPB ONE (17:08)
[2019-02-23] MEDS: CEFAZOLIN 1 GM in DEXTROSE 5%-WATER - 50 ML IVPB SCH (17:21)
[2019-02-23] MEDS: D5-1/2NS+20 MEQ KCL - 20 MEQ/1,000 ML INFUS.BAG IV SCH ×2 (19:59→23:51)
[2019-02-23] MEDS: amLODIPine BESYLATE 5 MG TABLET (FP) PO SCH (21:45)
[2019-02-23] MEDS: LISINOPRIL 20 MG TABLET (FP) PO SCH (21:45)
[2019-02-23] MEDS ORDERED: PATIENT'S OWN MEDICATION (NON-FORMULARY) (Amlodipine Besylate/Benazepril [Lotrel 5-20 Mg C PO SCH (22:00)
[2019-02-24] MEDS ORDERED: DEXTROSE 5%-WATER - 50 ML IVPB ONE ×3 (01:36→17:35)
[2019-02-24] MEDS ORDERED: ceFAZolin SODIUM 1 GM VIAL ONE ×3 (01:36→17:35)
[2019-02-24] MEDS: CEFAZOLIN 1 GM in DEXTROSE 5%-WATER - 50 ML IVPB SCH ×3 (01:40→17:38)
[2019-02-24] MEDS: DOCUSATE SODIUM 100 MG CAPSULE (FP) PO SCH ×3 (06:32→21:10)
[2019-02-24] MEDS: diazePAM 5 MG TABLET PO SCH ×3 (06:32→21:10)
[2019-02-24] MEDS: metFORMIN HCL 500 MG TABLET (FP) PO SCH ×2 (06:32→16:51)
[2019-02-24] MEDS: GABAPENTIN 100 MG CAPSULE (FP) PO SCH ×3 (06:33→21:10)
--- NOTE | 2019-02-24 07:36 | PN ---
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
--- NOTE | 2019-02-24 07:49 | PN ---
Progress Note (short form) - Note Progress Note: NEUROSURGERY POD #1 Knee, thigh and ankle pain on R much better Tmax 99.4, AF, VSS PE: CV- RRR; Lungs- CTA B; Abd- benign; Ext- no sign of DVT CN- intact; Motor- at least 4+/5 B LE; Sensation- intact LT Moderate serosangrenous drainage- swabbed with betadine and re-dressed Mobilize LSO brace when OOB FILM MAKER Labs satisfactory Valium for muscle relaxation Incentive spirometry Bowel regimen LS spine x-rays today Wound care Cont iv abx for now given drainage D/c Del Toro Findings d/w pt
--- NOTE | 2019-02-24 09:25 | OP ---
DATE OF OPERATION: 02/23/2019 PREOPERATIVE DIAGNOSES: 1. L1-2 degenerative disk disease with large disk herniation and spinal stenosis and intractable lumbar radiculopathy. 2. Prior L2 to L4 fusion. 3. Hypertension. 4. History of shunt placement. POSTOPERATIVE DIAGNOSES: 1. L1-2 degenerative disk disease with large disk herniation and spinal stenosis and intractable lumbar radiculopathy. 2. Prior L2 to L4 fusion. 3. Hypertension. 4. History of shunt placement. ATTENDING SURGEON: Kalyan Perez MD WRAPPER LAYER: NICO Ramirez ANESTHESIA: General endotracheal. ANESTHESIOLOGIST: Marlene Dumont MD ESTIMATED BLOOD LOSS: 300 mL. PROCEDURES: 1. Expansion of prior laminectomies L2 and new bilateral L1 laminectomies L1 for decompression of spinal canal and lateral recess and facetectomy at L1-2 (79855-22, 98216-99). 2. [place] autologous lamina and facet bone for interbody and posterolateral fusion (83747). 3. Microsurgical dissection with the operating microscope with microsurgical techniques (91749). 4. Bilateral L1-2 diskectomy. 5. Posterolateral interbody fusion L1-2 (17717). 6. Removal of posterior lumbar instrumentation system from L2-L4 (03391). 7. New lumbar pedicle screw fixation system from L1-L3 (42424). 8. New bilateral L1 pedicle screws with 6 x 45-mm screws on the left side and 5.5 x 45-mm screws on the right with new 16-mm rods bilaterally and new locking screws (19917). 9. Intraoperative fluoroscopy for localization and pedicle screw placement at L1. 10. Utilization of intervertebral 9-mm prosthetic device at L1-2 (37680). FINDINGS: 1. Dense epidural fibrosis L2-4. 2. L1-2 disk herniation. 3. Jaime degenerative disk space narrowing L1-2. 4. Sensitive lumbar nerve roots left greater than right at L1-2. INDICATIONS: Patient is a 73-year-old female with intractable lower back pain and lumbar radiculopathy right greater than left. She was found to have a disk herniation at L1-2 with marked degenerative disk space narrowing at L1-2. Because of intractable symptoms and failure of conservative treatment, she is consented for a lumbar decompression, fusion with instrumentation as well as extension and fusion up to the L1-2 level. Risks of procedure include, but are not limited to, bleeding, infection, dural tear with CSF leak, neurological injury, increased thromboembolic risks, and other risks of general anesthesia. Her risks are higher because of her prior surgeries. No guarantees are given for a favorable outcome. Intraoperative SSEP and EMG signals were monitored. PROCEDURE IN DETAIL: After the patient was taken to the operating room, she was placed in the supine position. After general anesthesia was induced and appropriate lines were placed, next Del Toro catheter was inserted. Patient was turned in a prone position on a Lawrence frame. All pressure points were then checked and padded. Lumbar region was cleaned with alcohol and prepped with Betadine. Prior incision was used with approximately 1-1/2-inch cephalad extension. Subperiosteal dissection was carried out with a periosteal elevator and monopolar electrocautery. Dense paraspinal epidural fibrosis was encountered, and prior instrumentation and extension was explored. The wound was irrigated with antibiotic irrigation intermittently. The lamina at L1 was skeletonized as was dissection at T12-L1 and L1-2. Two self-retaining retractors were inserted. The prior instrumentation locking mechanism was disengaged with locking screw drivers. The scar tissue was removed with Leksell rongeur. The rods were disconnected with a combination of osteotome and the iraida jaeger. The L4 pedicle screws were removed because the L3-4 fusion was done 5 years earlier, and the fusion has healed completely. Thrombin powder Gelfoam was used for hemostasis in the pedicle screw holes. Then attention was turned to the L1-2 space where an expansion of prior laminectomy at L2 as well as bilateral new L1 laminectomies were carried out high-speed pneumatic drill, angled curette, and Kerrison rongeur. Microsurgical techniques were utilized, and the bone grafts were harvested as well as the bone dust. Meticulous dissection was carried out to avoid violating the dura. This was accomplished. The wounds were intermittently irrigated with antibiotic irrigation. Facetectomy at L1-2 was carried out. This allowed access to the lateral recess. Levoscoliosis was noted with apex on the left initially. Epidural hemostasis was obtained with bipolar electrocautery after ligamentum flavum was resected and a facetectomy was carried out. The disk angle was incised with a No. 15 blade under gentle L2 nerve root retraction. Disk space was cleaned with serially larger disk space scraper up to 9 mm. A 10-mm distractor was placed on the left. Attention was turned to the right-sided disk space where the disk annulus was incised with a No. 10 blade. This was the convex side of the scoliosis. A serially larger disk scraper was used from 7-9 mm. The side cutting as well as downgoing curette was used to prepare the disk space. The central portion of disk material was removed with downgoing curette and upgoing pituitary rongeur. A 9 x 22-mm interbody implant was inserted and was countersunk by about 3-4 mm. This was repeated on the left side. The central portion of disk material was removed meticulously. The central portion of the disk space was packed with autologous morselized bone graft and bone dust, which was harvested earlier. Another 9 x 25-mm implant was inserted and countersunk by about 5 mm on the left side. At this point, the scoliosis appears to be corrected. The entry point of the pedicle screws were marked with high-speed pneumatic drill. The screw holes were 1st awled and tapped. A 5.5 x 45-mm screws were used on the right and 6.0 x 45-mm screws were used on the left. They were screwed in medially by about 10 degrees. The wound was actually washed and irrigated and the pedicle screw structures at L1-2 were tested. They were all greater than 20 mA. The L2 screws were advanced slightly anteriorly to allow the iraida contour to be placed later on. At this point, the thecal sac was thoroughly decompressed at L1-2 as well as down to L3. There was some metallic debris noted next to the prior pedicle screw system at L2-3. This was washed and debrided. A 16-mm iraida was loaded on top of the screws and locked down with locking screws. The screws were compressed at L1-2 prior to final tightening. A torque wrench and counter torque wrench were used for final tightening, 10 mL of 0.25% Marcaine were injected in paraspinal muscle. A thin layer of DuraSeal was laid in the epidural space just as a precaution. Posterior lateral surface of the spine was decorticated with the high-speed pneumatic drill and packed with autologous morselized bone graft and bone dust. At this point, dorsal lumbar musculature was approximated with 0 Vicryl suture, and dorsal lumbar fascia was closed with 0 Vicryl sutures similarly. Subcutaneous fascia was closed with 3-0 Vicryl suture and the skin was closed with 4-0 Vicryl running subcuticular suture. Steri-Strips and a sterile occlusive dressing were applied. The patient tolerated the procedure well, was returned back to the supine position, moving bilateral lower extremities well. She is not complaining of headache. She received 1 dose of 2 g of Ancef prior to incision. All needle and lap counts were correct. The OR time-out procedure was followed. The family was updated as to the patient's postoperative condition as well as intraoperative findings. Lisbet ANDREA/[id number]
[2019-02-24] MEDS ORDERED: PT OWN MED DRAWER 7, Y5N ONE (09:29)
[2019-02-24] MEDS: lamoTRIgine 100 MG TABLET (FP) PO SCH (09:34)
[2019-02-24] MEDS: amLODIPine BESYLATE 5 MG TABLET (FP) PO SCH ×2 (09:34→21:10)
[2019-02-24] MEDS: LISINOPRIL 20 MG TABLET (FP) PO SCH ×2 (09:34→21:10)
[2019-02-24] MEDS: POLYETHYLENE GLYCOL 3350 119 GM BTL PO SCH (10:01)
[2019-02-24] MEDS: D5-1/2NS+20 MEQ KCL - 20 MEQ/1,000 ML INFUS.BAG IV SCH (11:29)
[2019-02-24] MEDS ORDERED: ACETAMINOPHEN 325 MG TABLET (FP) PO PRN (15:20)
[2019-02-24] MEDS: TAPENTADOL HYDROCHLORIDE 50 MG TABLET PO PRN (15:36)
[2019-02-24] MEDS: ACETAMINOPHEN 325 MG TABLET (FP) PO PRN (15:38)
[2019-02-24] MEDS: LACTATED RINGERS SOLUTION 1,000 ML IV SCH (15:44)
[2019-02-25] MEDS ORDERED: DEXTROSE 5%-WATER - 50 ML IVPB ONE ×2 (00:47→09:47)
[2019-02-25] MEDS ORDERED: ceFAZolin SODIUM 1 GM VIAL ONE ×2 (00:47→09:46)
[2019-02-25] MEDS: CEFAZOLIN 1 GM in DEXTROSE 5%-WATER - 50 ML IVPB SCH ×2 (01:10→10:09)
[2019-02-25] MEDS: DOCUSATE SODIUM 100 MG CAPSULE (FP) PO SCH ×3 (06:03→21:17)
[2019-02-25] MEDS: GABAPENTIN 100 MG CAPSULE (FP) PO SCH ×3 (06:03→21:17)
[2019-02-25] MEDS: metFORMIN HCL 500 MG TABLET (FP) PO SCH ×2 (06:03→16:41)
[2019-02-25] MEDS: diazePAM 5 MG TABLET PO SCH ×3 (06:03→21:17)
--- NOTE | 2019-02-25 07:28 | PN ---
Progress Note (short form) - Note Progress Note: NEUROSURGERY POD #2 Knee, thigh and ankle pain on R much better Tmax 99.3 over night, VSS PE: CV- RRR; Lungs- CTA B; Abd- benign; Ext- no sign of DVT CN- intact; Motor- at least 4+/5 B LE; Sensation- intact LT Minimal serosangrenous drainage- swabbed with betadine and re-dressed Mobilize LSO brace when OOB On Nucynta, off DIRECTOR OF SPA AND GUEST EXPERIENCE Labs satisfactory Valium for muscle relaxation Incentive spirometry Bowel regimen D/C IVF Findings d/w pt
--- NOTE | 2019-02-25 07:45 | SURG ---
Surgery Electronics Engineering Technician Note Electronics Engineering Technician: Waldo Ramos PA-C Date of Service: 02/23/19 Diagnosis: 1. L1/L2 degenerative disc disease with large disc herniation and spinal stenosis and intractable lumbar radiculopathy 2. Prior L2-4 fusion 3. Hypertension 4. history of shunt placement Procedure: 1. Expansion of prior laminectomies L2 and new bilateral L1 laminectomies L1 for decompression of spinal canal and lateral recess and facetectomy at L1-L2 ( 38278-74, 87865-90) 2. [place] autologous lamina and facet bone for interbody and posterolateral fusion (92313) 3. Bilateral L1-2 discectomy. 4. Posterolateral interbody fusion L1-2 5. Removal of posterior lumbar instrumentation system from L2-4 (53099) 6. New Lumbar pedicle screw fixation system from L1-L3 (20333) 7. New bilateral L1 pedicle screws with new rods bilaterally (18903) 8. Intraoperative fluroscopy for pedicle screw placement 9.Utilization of intervertebral prosthetic device at L1-2 (67150) I was present for the entirety of the operative procedure. For further detail, please refer to operative report. Visit type - Case Type Case Type: Scheduled - Emergency Emergency Visit: No - New patient This patient is new to me today: Yes Date on this admission: 03/03/19 - Critical Care Critical Care patient: No
[2019-02-25] MEDS ORDERED: PT OWN MED DRAWER 7, Y5N ONE ×3 (09:46→14:26)
[2019-02-25] MEDS: POLYETHYLENE GLYCOL 3350 119 GM BTL PO SCH (10:08)
[2019-02-25] MEDS: LISINOPRIL 20 MG TABLET (FP) PO SCH ×2 (10:10→21:17)
[2019-02-25] MEDS: TAPENTADOL HYDROCHLORIDE 50 MG TABLET PO PRN (10:10)
[2019-02-25] MEDS: amLODIPine BESYLATE 5 MG TABLET (FP) PO SCH ×2 (10:12→21:17)
--- NOTE | 2019-02-25 10:27 | PN ---
Progress Note (short form) - Note Progress Note: Anesthesia POD#2 S/P EARLY MORNING for the back surgery. Doing well with pain control,orals are started. Taking oral meds. A/P Dilaulid EARLY MORNING is discontinued. Maggie Jerome MD.
[2019-02-25] MEDS: lamoTRIgine 100 MG TABLET (FP) PO SCH (13:16)
[2019-02-25] MEDS: LACTATED RINGERS SOLUTION 1,000 ML IV SCH (14:30)
[2019-02-25 15:31] LABS: HEMATOCRIT 34.3 % (32.4-45.2); HEMOGLOBIN 11.2 GM/dL (10.7-15.3); MCH 29.5 pg (25.7-33.7); MCHC 32.7 g/dl (32.0-36.0); MEAN CELL VOLUME 90.1 fl (80-96); MEAN PLT VOLUME 11.5 fl (7.5-11.1); PLATELET COUNT 116 K/MM3 (134-434); WHITE BLOOD COUNT 11.2 K/mm3 (4.0-10.0)
[2019-02-25] MEDS: ACETAMINOPHEN 325 MG TABLET (FP) PO PRN (21:16)
[2019-02-26] MEDS: metFORMIN HCL 500 MG TABLET (FP) PO SCH (06:01)
[2019-02-26] MEDS: diazePAM 5 MG TABLET PO SCH (06:01)
[2019-02-26] MEDS: DOCUSATE SODIUM 100 MG CAPSULE (FP) PO SCH (06:01)
[2019-02-26] MEDS: GABAPENTIN 100 MG CAPSULE (FP) PO SCH (06:01)
[2019-02-26 08:05] LABS: BASO % 0.7 % (0-2.0); EOS % 6.4 % (0-4.5); HEMATOCRIT 33.6 % (32.4-45.2); HEMOGLOBIN 11.3 GM/dL (10.7-15.3); LYMPH % 15.8 % (8-40); MCH 29.9 pg (25.7-33.7); MCHC 33.5 g/dl (32.0-36.0); MEAN CELL VOLUME 89.1 fl (80-96); MEAN PLT VOLUME 10.3 fl (7.5-11.1); MONO % 9.4 % (3.8-10.2); NEUT % 67.7 % (42.8-82.8); PLATELET COUNT 128 K/MM3 (134-434); RBC 3.77 M/mm3 (3.60-5.2); RDW 12.8 % (11.6-15.6); WHITE BLOOD COUNT 7.6 K/mm3 (4.0-10.0)
[2019-02-26] MEDS: POLYETHYLENE GLYCOL 3350 119 GM BTL PO SCH (09:28)
[2019-02-26] MEDS ORDERED: PT OWN MED DRAWER 7, Y5N ONE (09:32)
[2019-02-26] MEDS: TAPENTADOL HYDROCHLORIDE 50 MG TABLET PO PRN (09:33)
[2019-02-26] MEDS: lamoTRIgine 100 MG TABLET (FP) PO SCH (09:34)
[2019-02-26] MEDS: amLODIPine BESYLATE 5 MG TABLET (FP) PO SCH (09:34)
[2019-02-26] MEDS: LISINOPRIL 20 MG TABLET (FP) PO SCH (09:34)
--- NOTE | 2019-02-26 09:59 | PN ---
Progress Note (short form) - Note Progress Note: NEUROSURGERY POD #3 Family at bedside Knee, thigh and ankle pain on R much better Tmax 99.5, now 98.8, VSS PE: CV- RRR; Lungs- CTA B; Abd- benign; Ext- no sign of DVT CN- intact; Motor- at least 4+/5 B LE; Sensation- intact LT Minimal drainage from bottom, dressing changed WBC 7.6 Mobilize LSO brace when OOB On Nucynta Valium for muscle relaxation Incentive spirometry Bowel regimen wound care and d/c instructions given
[2019-02-26 12:59] VITALS: BP 105/63; PULSE 88; TEMP 98.2
--- NOTE | 2019-02-27 17:11 | PATH ---
Surgical Pathology Report Patient Name: SAMEER FRANCIS Med. Rec. #: [id number] /Age/Gender: 1945 (Age: 73) / F Account: [id number] Location: [facility] MED/SURG Taken: 02/23/2019 Received: 02/24/2019 Reported: 02/27/2019 Physicians: Kalyan Perez M.D. Specimen(s) Received A: L1-L2 DISCS B: L2-L3 HARDWARE Clinical History L2-L3 herniated discs Final Diagnosis A. L1-L2 DISCS, DISCECTOMY: FRAGMENTS OF BONE AND CARTILAGINOUS TISSUE WITH FOCAL CHONDROCALCINOSIS. B. HARDWARE L2-L3, REMOVAL: CONSISTENT HARDWARE. GROSS EXAMINATION ONLY. Electronically Signed Wilton Martinez M.D. Gross Description A. Received in formalin labeled "L1-L2 discs," is a 5.5 x 3.5 x 0.4 cm aggregate of garcia fragments of fibrocartilaginous tissue. A contact center representative portion is submitted in one cassette. B. Received fresh labeled "hardware L2-L3," are 2 mcmillan metallic rods averaging 6.3 cm in length. Also received within the same container are 9 mcmillan metallic screws ranging from 0.4-5.7 cm in length. No soft tissue is present. No sections are submitted, gross only. 02/24/201902/24/2019
== END 2019-02-26 11:24 | disposition home or self-care (01) | DRG 455 ==
LOC: JSAMEDAYSX 04:51 → J8W 15:51
PROVIDERS: ADMIT Neurological Surgery; ATTEND Neurological Surgery
PROC: 0SG00AJ Fusion of Lumbar Vertebral Joint with Interbody Fusion Device, Posterior Approach, Anterior Column, Open Approach (ICD-10-PCS; 2019-02-23)
PROC: 0SG0071 Fusion of Lumbar Vertebral Joint with Autologous Tissue Substitute, Posterior Approach, Posterior Column, Open Approach (ICD-10-PCS; 2019-02-23)
PROC: 01NB0ZZ Release Lumbar Nerve, Open Approach (ICD-10-PCS; 2019-02-23)
PROC: 0SB20ZZ Excision of Lumbar Vertebral Disc, Open Approach (ICD-10-PCS; 2019-02-23)
PROC: B01BZZZ Fluoroscopy of Spinal Cord (ICD-10-PCS; 2019-02-23)
PROC: 0SP00AZ Removal of Interbody Fusion Device from Lumbar Vertebral Joint, Open Approach (ICD-10-PCS; principal; 2019-02-23 08:00)
DX: M48.061 Spinal stenosis, lumbar region without neurogenic claudication (principal); M51.16 Intervertebral disc disorders with radiculopathy, lumbar region; M43.16 Spondylolisthesis, lumbar region; I10 Essential (primary) hypertension; G96.19 Other disorders of meninges, not elsewhere classified; M41.9 Scoliosis, unspecified
CPT/HCPCS: 36415; 72100-TC-FY; 76000-TC-FY; 80048; 82962; 85025; 85027; 86850; 86900; 86901; 88300-TC; 88304-TC; 94010; 94760; 97116-GP; 97162-GP

== ENCOUNTER 2020-01-04 04:30 | Day surgery (SDC) | payer OTHER, MEDICARE ==
--- OUTSIDE RECORDS SUMMARY | 2019-12-25 14:43 | XMS ---
:1945 [facility] Providers Name Role Phone ARIAN HEDRICK Unavailable Unavailable VICENTA GARCIA Unavailable Unavailable NOAH ARAYA Unavailable Unavailable Re-disclosure Warning The records that you are about to access may contain information from federally- assisted alcohol or drug abuse programs. If such information is present, then the following federally mandated warning applies: This information has been disclosed to you from records protected by federal confidentiality rules (42 CFR part 2). The federal rules prohibit you from making any further disclosure of this information unless further disclosure is expressly permitted by the written consent of the person to whom it pertains or as otherwise permitted by 42 CFR part 2. A general authorization for the release of medical or other information is NOT sufficient for this purpose. The Federal rules restrict any use of the information to criminally investigate or prosecute any alcohol or drug abuse patient.The records that you are about to access may contain highly sensitive health information, the redisclosure of which is protected by Article 27-F of the [facility] Public Health law. If you continue you may haveaccess to information: Regarding HIV / AIDS; Provided by facilities licensed or operated by the [facility] Office of Mental Health; or Provided by the [facility] Office for People With Developmental Disabilities. If such information is present, then the following [facility] mandated warning applies: This information has been disclosed to you from confidential records which are protected by state law. State law prohibits you from making any further disclosure of this information without the specific written consent of the person to whom it pertains, or as otherwise permitted by law. Any unauthorized further disclosure in violation of state law may result in a fine or nursing home sentence or both. A general authorization for the release of medical or other information is NOT sufficient authorization for further disclosure. Allergies and Adverse Reactions Type Description Substance Reaction Status Data Source(s ) Drug allergy No Known Drug No Known Drug [facility] Allergies Allergies [facility] Encounters Encounter Providers Location Date Indications Data Source(s ) Outpatient Attender: 06/08/2019 G91.9 [facility] dixie RAYNAEEM, 11:03:00 AM Health Care ZVIAdmitter: [facility] [employer] JB ARAYAeferrer: ARIAN HEDRICK G91.9 Outpatient Attender: MARSHAL, 09/30/2018 09:11:00 M54.5 G91.9 [facility] ZVIAdmitter: [facility] [employer] ZVIReferrer: VICENTA GARCIA M54.5 G91.9 Outpatient Attender: MARSHAL, 09/30/2018 06:00:[address] [place] [address] ZVIAdmitter: [facility] [employer] ZVIReferrer: VICENTA GARCIA M54.5 G91.9 Outpatient Attender: MARSHAL, 09/26/2018 06:00:00 4.5 G91.9 [facility] ZVIAdmitter: [facility] [employer] ZVIReferrer: VICENTA GARCIA M54.5 G91.9 Insurance Providers Payer name Policy type Policy ID Covered Covered alliance party's Policy P iam / Coverage alliance party ID relationship to Pike Inf ormation type pike [facility] [id number] CARE OPTIONS MEDICARE [id number] SP [id number] [facility] [id number] C[employer] MEDICARE [id number] SP [id number] A Problems, Conditions, and Diagnoses Code Display Name Description Problem Type Effective Dates Data Source(s) G91.9 Hydrocephalus, HYDROCEPHALUS, Diagnosis 06/08/2019 [facility] toña unspecified UNSPECIFIED 11:03:00 AM [facility] on M54.5 Low back pain LOW BACK PAIN Diagnosis 09/26/2018 [facility] 06:00:00 AM [facility] on
[2019-12-31 15:19] VITALS: BMI 28.1
[~2020-01-04 04:30] MED LIST changes: -BACITRACIN 15 GM TUBE TOPICAL OINTMENT TP ONE; -BACITRACIN 50,000 UNITS VIAL TP ONE; -GELATIN SPONGE,ABSORBABLE 1 GM PACKET TP ONE; +LIDOCAINE HCL 1%, 10 MG/ML (50 mL VIAL) INF ONE; -THROMBIN (BOVINE) 5,000 UNIT VIAL TP ONE; -ceFAZolin SODIUM 1 GM VIAL IVPB ONE; +methylPREDNISolone ACET (DEPO) 80 MG/1 ML VIAL IM ONE
--- OUTSIDE RECORDS SUMMARY | 2020-01-04 04:35 | XMS ---
:1945 Author Organization [facility] Providers Name Role Phone [...] is protected by Article 27-F of the [facility] Public Health law. If you continue you may haveaccess to information: Regarding HIV / AIDS; Provided by facilities licensed or operated by the [facility] Office of Mental Health; or Provided by the [facility] Office for People With Developmental Disabilities. If such information is present, then the following [facility] mandated warning applies: This information has [...] law may result in a fine or long term sentence or both. A general authorization for the release of medical or other information is NOT sufficient authorization for further disclosure. Allergies and Adverse Reactions Type Description Substance Reaction Status Data Source(s ) Drug allergy No Known Drug No Known Drug [facility] Allergies Allergies [facility] Encounters Encounter Providers Location Date Indications Data Source(s ) Outpatient Attender: 06/08/2019 G91.9 [facility]ty [place]OR[place], 11:03:00 AM Health Care ZVIAdmitter: [facility] [place] JB ARAYAeferrer: ARIAN HEDRICK G91.9 Outpatient Attender: MARSHAL, 09/30/2018 09:11:00 M54.5 G91.9 [facility] ZVIAdmitter: AM [facility] [employer] ZVIReferrer: VICENTA GARCIA M54.5 G91.9 Outpatient Attender: MARSHAL, 09/30/2018 06:00:[address] [place] [address] ZVIAdmitter: AM [facility] [employer] ZVIReferrer: VICENTA GARCIA M54.5 G91.9 Outpatient Attender: MARSHAL 09/26/2018 06:00:[address] [place] [address] ZVIAdmitter: AM [facility] [employer] ZVIReferrer: VICENTA GARCIA M54.5 G91.9 Insurance Providers Payer name Policy type Policy ID Covered Covered green party's Policy P iam / Coverage green party ID relationship to Pike Inf ormation type pike [facility] [id number] CARE OPTIONS MEDICARE [id number] SP [id number] [facility] [id number] C[employer] MEDICARE [id number] SP [id number] A Problems, Conditions, and Diagnoses Code Display Name Description Problem Type Effective Dates Data Source(s) G91.9 Hydrocephalus, HYDROCEPHALUS, Diagnosis 06/08/2019 [facility] toña unspecified UNSPECIFIED 11:03:00 [facility]5 Low back pain LOW BACK PAIN Diagnosis 09/26/2018 [facility] 06:00:00 AM [facility] on Results ID Date Data Source [id number] 12/30/2019 08:27:00 AM EDT [facility] Name Value Range Interpretation Description Data Sup porting Code Source(s) Document(s ) SARS [facility] coronavirus 2 RNA This lab was ordered by [facility] and reported by [facility]. Procedure
[2020-01-04] MEDS ORDERED: methylPREDNISolone ACET (DEPO) 80 MG/1 ML VIAL ONE (09:25)
[2020-01-04] MEDS ORDERED: LIDOCAINE HCL/PF 1% SDV 5ML VIAL ONE (09:25)
[2020-01-04] MEDS ORDERED: PROPOFOL 20 ML ONE (09:51)
[2020-01-04] MEDS ORDERED: LIDOCAINE HCL/PF 2% SDV 5ML VIAL ONE (09:51)
[2020-01-04] MEDS ORDERED: KETOROLAC TROMETHAMINE 30 MG/1 ML VIAL ONE (09:51)
[2020-01-04] MEDS ORDERED: LIDOCAINE HCL 1%, 10 MG/ML (50 mL VIAL) INF ONE (10:01)
[2020-01-04] MEDS ORDERED: methylPREDNISolone ACET (DEPO) 80 MG/1 ML VIAL IM ONE (10:01)
[2020-01-04] MEDS ORDERED: BUPIVACAINE HCL/PF 0.5% (5 MG/ML) 30 ML VIAL IJ ONE ×2 (10:05)
[2020-01-04 10:46] VITALS: TEMP 97.8
--- NOTE | 2020-01-04 11:04 | OP ---
DATE OF OPERATION: 01/04/2020 PREOPERATIVE DIAGNOSES: 1. History of L1-L4 fusion. 2. T12-L1 facet disease. POSTOPERATIVE DIAGNOSES: 1. History of L1-L4 fusion. 2. T12-L1 facet disease. ATTENDING SURGEON: Kalyan Gonzalez MD PROCEDURE: 1. Bilateral T12-L1 facet block. 2. Intraoperative fluoroscopy. ANESTHESIA: Local with IV sedation. ANESTHESIOLOGIST: Maggie Jerome MD ESTIMATED BLOOD LOSS: Minimal. INDICATION: Patient is a 74-year-old female with history of lumbar fusion from L1 to L4. She complains of midback pain just above her fusion. She is here for her first facet block at T12-L1. The risks of procedure include but are not limited to bleeding, infection, dural tear, spinal headache and neurologic injury. The patient understands the indications for the procedure, procedure in detail, risks and benefits and alternatives for treatment of her condition and wished to proceed. No guarantees were given for a favorable outcome. PROCEDURE IN DETAIL: After patient was taken to the operating room, she was placed in the prone position with a pillow under her hips. Thoracolumbar junction was cleaned with alcohol and prepped with Betadine. Skin wheal was raised with 5 mL of 1% Xylocaine. A 22-gauge needle was inserted under AP and lateral fluoroscopic guidance towards the facet joint at T12-L1 bilaterally. There was no CSF or blood backflow. The facet joints were entered and 1 mL of 0.25% Marcaine and 40 mg of Depo-Medrol were injected at each site. Needle was withdrawn. Sterile bandage was applied. The patient tolerated the procedure well, was turned back to the supine position moving bilateral lower extremities well. She did not complain of headache or any new lower extremity symptoms. KALYAN GONZALEZ M.D. [id number]
[2020-01-04 11:49] VITALS: BP 110/70; PULSE 70
== END 2020-01-04 11:35 | disposition home or self-care (01) ==
LOC: JASU-SURG 04:30
PROVIDERS: ATTEND Neurological Surgery
PROC: 3E0T33Z Introduction of Anti-inflammatory into Peripheral Nerves and Plexi, Percutaneous Approach (ICD-10-PCS; 2020-01-04)
PROC: 3E0T3BZ Introduction of Anesthetic Agent into Peripheral Nerves and Plexi, Percutaneous Approach (ICD-10-PCS; 2020-01-04)
PROC: 3E0T33Z Introduction of Anti-inflammatory into Peripheral Nerves and Plexi, Percutaneous Approach (ICD-10-PCS; 2020-01-04)
PROC: 3E0T3BZ Introduction of Anesthetic Agent into Peripheral Nerves and Plexi, Percutaneous Approach (ICD-10-PCS; principal; 2020-01-04 10:00)
DX: M96.1 Postlaminectomy syndrome, not elsewhere classified (principal); M15.9 Polyosteoarthritis, unspecified; M81.0 Age-related osteoporosis without current pathological fracture; E11.9 Type 2 diabetes mellitus without complications; Z79.4 Long term (current) use of insulin; M48.061 Spinal stenosis, lumbar region without neurogenic claudication
CPT/HCPCS: 76000-TC-FY; 82962

== ENCOUNTER 2021-11-29 08:57 | Inpatient (IN) | payer OTHER, MEDICARE ==
[2021-11-29 10:02] LABS: ARTERIAL BLD GAS O2 SATURATION 96.8 % (95-98); ARTERIAL BLOOD GAS BASE EXCESS -2.3 mmol/L (-2-2); ARTERIAL BLOOD GAS PO2 85.6 mmHg (80-100); ARTERIAL BLOOD GAS pH 7.432 (7.350-7.450)
[2021-11-29 10:04] LABS: ALLENS TEST POSITIVE
[2021-11-29 10:08] LABS: BASO % 0.6 % (0-2.0); EOS % 4.2 % (0-4.5); HEMOGLOBIN 14.6 GM/dL (10.7-15.3); LYMPH % 19.9 % (8-40); MCH 28.7 pg (25.7-33.7); MCHC 33.2 g/dl (32.0-36.0); MEAN CELL VOLUME 86.5 fl (80-96); MEAN PLT VOLUME 10.1 fl (7.5-11.1); MONO % 8.6 % (3.8-10.2); NEUT % 66.7 % (42.8-82.8); PLATELET COUNT 182 10^3/uL (134-434); RBC 5.09 M/mm3 (3.60-5.2); RDW 15.6 % (11.6-15.6); WHITE BLOOD COUNT 8.2 K/mm3 (4.0-10.0)
[2021-11-29 10:15] LABS: INR 1.58 (0.83-1.09); PROTHROMBIN TIME (PATIENT) 18.2 SEC (9.7-13.0)
[2021-11-29] MEDS ORDERED: SODIUM CHLORIDE 500 ML IV STA (10:26)
[2021-11-29 10:34] LABS: ALBUMIN 3.7 g/dl (3.4-5.0); BLOOD UREA NITROGEN 27.3 mg/dL (7-18)
[2021-11-29 10:37] LABS: BILIRUBIN,DIRECT 0.2 mg/dL (0.0-0.2)
[2021-11-29 10:39] LABS: TOT PROT 6.8 g/dl (6.4-8.2)
[2021-11-29 13:25] LABS: URINE APPEARANCE TURBID; URINE BILIRUBIN NEGATIVE (NEGATIVE); URINE COLOR RED; URINE GLUCOSE (UA) NEGATIVE (NEGATIVE)
[2021-11-29 13:26] LABS: EPI CELLS 0.7 /uL (0-25.1); URINE BACTERIA 5 /uL (0-1359); URINE PROTEIN 1+ (NEGATIVE); URINE RBC 1667 /uL (0-23.9); URINE UROBILINOGEN 0.2 mg/dL (0.2-1.0); URINE WBC 2 /uL (0-25.8)
[2021-11-29] MEDS: SODIUM CHLORIDE 1,000 ML IV SCH (13:59)
[2021-11-29] MEDS: METOPROLOL TARTRATE 50 MG TABLET (FP) PO SCH (14:12)
[2021-11-29] MEDS: INSULIN (NOVOLOG) ASPART 100 UNITS/ML 10ML VIAL SQ SCH (17:38)
[2021-11-29] MEDS: SODIUM CHLORIDE 0.45% 1,000 ML IV SCH (17:38)
[2021-11-30] MEDS: METOPROLOL TARTRATE 50 MG TABLET (FP) PO SCH ×2 (00:42→13:11)
[2021-11-30 01:56] VITALS: BMI 26.6
[2021-11-30] MEDS: SODIUM CHLORIDE 0.45% 1,000 ML IV SCH (03:57)
[2021-11-30] MEDS: INSULIN (NOVOLOG) ASPART 100 UNITS/ML 10ML VIAL SQ SCH ×2 (06:47→16:40)
[2021-11-30] MEDS: lamoTRIgine 100 MG TABLET PO SCH (09:25)
[2021-11-30] MEDS: CEFTRIAXONE 1 GM in DEXTROSE 5%-WATER 100 ML IVPB SCH (09:43)
[2021-11-30] MEDS: SODIUM CHLORIDE 1,000 ML IV SCH ×3 (09:43→23:34)
[2021-11-30 09:51] LABS: BASO % 0.8 % (0-2.0); EOS % 4.6 % (0-4.5); HEMATOCRIT 41.4 % (32.4-45.2); HEMOGLOBIN 13.4 GM/dL (10.7-15.3); MCH 28.2 pg (25.7-33.7); MCHC 32.3 g/dl (32.0-36.0); MEAN CELL VOLUME 87.1 fl (80-96); MEAN PLT VOLUME 10.6 fl (7.5-11.1); MONO % 6.8 % (3.8-10.2); NEUT % 67.8 % (42.8-82.8); PLATELET COUNT 173 10^3/uL (134-434); RBC 4.76 M/mm3 (3.60-5.2); RDW 15.7 % (11.6-15.6); WHITE BLOOD COUNT 6.9 K/mm3 (4.0-10.0)
[2021-11-30 10:25] LABS: ALBUMIN 3.3 g/dl (3.4-5.0); CALCIUM 9.1 mg/dL (8.5-10.1)
[2021-11-30 10:28] LABS: CREATININE 0.9 mg/dL (0.55-1.3)
[2021-11-30 10:29] LABS: BILIRUBIN,TOTAL 1.1 mg/dL (0.2-1)
[2021-11-30 21:41] LABS: MAGNESIUM 1.8 mg/dL (1.8-2.4)
[2021-11-30 22:47] VITALS: RESP 18
[2021-11-30] MEDS ORDERED: ACETAMINOPHEN 325 MG TABLET (FP) PO ONE (22:59)
[2021-12-01] MEDS: METOPROLOL TARTRATE 50 MG TABLET (FP) PO SCH ×2 (01:06→14:04)
[2021-12-01] MEDS: INSULIN (NOVOLOG) ASPART 100 UNITS/ML 10ML VIAL SQ SCH ×2 (06:31→17:17)
[2021-12-01] MEDS: CEFTRIAXONE 1 GM in DEXTROSE 5%-WATER 100 ML IVPB SCH (10:59)
[2021-12-01] MEDS: lamoTRIgine 100 MG TABLET PO SCH (10:59)
[2021-12-01] MEDS: SODIUM CHLORIDE 1,000 ML IV SCH ×3 (11:00→23:50)
[2021-12-01] MEDS ORDERED: ACETAMINOPHEN 325 MG TABLET (FP) PO PRN (18:33)
[2021-12-01] MEDS: SULFAMETHOXAZOLE/TRIMETHOPRIM 800MG/160MG D.S. TABLET PO SCH (22:32)
[2021-12-02] MEDS: METOPROLOL TARTRATE 50 MG TABLET (FP) PO SCH (01:54)
[2021-12-02] MEDS: INSULIN (NOVOLOG) ASPART 100 UNITS/ML 10ML VIAL SQ SCH (07:00)
[2021-12-02] MEDS: SULFAMETHOXAZOLE/TRIMETHOPRIM 800MG/160MG D.S. TABLET PO SCH (09:26)
[2021-12-02] MEDS: lamoTRIgine 100 MG TABLET PO SCH (09:26)
[2021-12-02 11:13] VITALS: BP 142/88; PULSE 96; TEMP 98
== END 2021-12-02 14:53 | disposition home or self-care (01) | DRG 813 ==
LOC: JER 08:57 → JERBED 12:57 → J6S 22:06
PROVIDERS: ADMIT Internal Medicine; ATTEND Internal Medicine
DX: D68.32 Hemorrhagic disorder due to extrinsic circulating anticoagulants (principal); N39.0 Urinary tract infection, site not specified; I10 Essential (primary) hypertension; E11.9 Type 2 diabetes mellitus without complications; Z86.73 Personal history of transient ischemic attack (TIA), and cerebral infarction without residual deficits; I25.10 Atherosclerotic heart disease of native coronary artery without angina pectoris; I48.91 Unspecified atrial fibrillation; Z79.01 Long term (current) use of anticoagulants; R31.0 Gross hematuria; R07.89 Other chest pain; T45.515A Adverse effect of anticoagulants, initial encounter; Z79.84 Long term (current) use of oral hypoglycemic drugs
CPT/HCPCS: 36415; 36600; 71045-TC-FY; 76775-TC; 76856-TC; 80053; 81003; 82248; 82803; 82962; 83615; 83735; 84484; 85025; 85610; 87086; 87186; 93005; 93010; 99285-25; C9803-CS; U0003; U0005

== ENCOUNTER 2022-04-03 12:21 | Emergency (ER) | payer OTHER, MEDICARE ==
[2022-04-03 12:59] VITALS: BMI 27.8
[2022-04-03] MEDS ORDERED: LACTATED RINGERS SOLUTION 1000 ML INFUS.BAG IV ONE (14:18)
[2022-04-03 15:55] LABS: BASO % 0.7 % (0-2.0); EOS % 1.7 % (0-4.5); LYMPH % 18.1 % (8-40); MCHC 32.5 g/dl (32.0-36.0); MEAN CELL VOLUME 86.2 fl (80-96); MEAN PLT VOLUME 10.4 fl (7.5-11.1); MONO % 5.9 % (3.8-10.2); NEUT % 73.6 % (42.8-82.8); PLATELET COUNT 197 10^3/uL (134-434); RBC 5.34 M/mm3 (3.60-5.2); WHITE BLOOD COUNT 10.7 K/mm3 (4.0-10.0)
[2022-04-03 16:00] LABS: EPI CELLS 2 /uL (0-25.1); HYALINE CASTS 1 /uL (0-3.1); PH,URINE 6.5 (5.0-8.0); URINE APPEARANCE CLOUDY; URINE BACTERIA >9,000 /uL (0-1359); URINE BILIRUBIN NEGATIVE (NEGATIVE); URINE COLOR YELLOW; URINE GLUCOSE (UA) NEGATIVE (NEGATIVE); URINE KETONE NEGATIVE (NEGATIVE); URINE LEUK ESTERASE 1+ (NEGATIVE); URINE NITRITE NEGATIVE (NEGATIVE); URINE PROTEIN 3+ (NEGATIVE); URINE RBC 6687 /uL (0-23.9); URINE WBC 333 /uL (0-25.8)
[2022-04-03 16:15] LABS: CALCIUM 10.2 mg/dL (8.5-10.1)
[2022-04-03 16:16] LABS: ALBUMIN 3.7 g/dl (3.4-5.0); BLOOD UREA NITROGEN 18.3 mg/dL (7-18)
[2022-04-03 16:21] LABS: TOT PROT 7.2 g/dl (6.4-8.2)
[2022-04-03 18:35] VITALS: BP 148/82; PULSE 95; RESP 18; TEMP 98
== END 2022-04-03 18:51 | disposition home or self-care (01) ==
LOC: JER 12:21
DX: N39.0 Urinary tract infection, site not specified (principal); R10.9 Unspecified abdominal pain
CPT/HCPCS: 0241U-QW; 36415; 74176-TC; 80053; 81003; 82962; 85025; 87086; 99284-25